=== PATIENT | female | born 1940 | race Caucasian/White ===

== ENCOUNTER 2017-12-03 14:00 | Inpatient (IN) | payer OTHER ==
[~2017-12-03] VITALS: Ht 154.9 cm; Wt 55.2 kg
--- NOTE | 2017-12-03 14:22 | EMERGENCY ROOM VISIT NOTE ---
History First contact with patient: 14:05 Chief Complaint: ABDOMINAL PAIN Stated Complaint: ABDOMINAL PAIN Nursing Triage Summary: triage note: pt reports upper abd pain since middle of october. pt reports she has a blood clot in her liver. pt reports "i just feel like i am getting worse instead of better." pt reports hx of diverticulitis. History of Present Illness The patient is a 77 year old female who presents to the Emergency Room with complaints of abdominal pain, night sweats, and generally feels unwell. She reports she was recently worked up for abdominal pain and found to have a thrombus in the portal vein, and is on coumadin for this. She reports she has had night sweats over the last 2 weeks, an extreme loss of appetite, and has lost about 15 pounds in the last 2 weeks. She has been seeing her PCP at [facility] and today went back to follow up, but felt more unwell so requested to come to the ED. She reports her abdominal pain is in the center of her abdomen, burning, does not radiate, nothing makes it better or worse, and 7/ 10 severity. Review of Systems See HPI for pertinent positives & negatives. A total of 10 systems reviewed and were otherwise negative. 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 Oropharynx unremarkable. EYES: Normal conjunctiva. Sclera non-icteric. NECK: Supple. No nuchal rigidity. FROM. No JVD. RESPIRATORY: Clear to auscultation. CARDIAC: Regular rate, normal rhythm. Extremities warm and well perfused. Pulses equal. ABDOMEN: Soft, diffuse epigastric abdominal pain with guarding. No rebound. Negative Ahmadi's. MUSCULOSKELETAL: Chest examination reveals no tenderness. The back is symmetrical on inspection without obvious abnormality. There is no CVA tenderness to palpation. No joint edema. LOWER EXTREMITIES: Calves are equal size bilaterally and non-tender. No edema. No discoloration. NEURO: Normal sensorium. No sensory or motor deficits noted. SKIN: No rash or jaundice noted. Medical Decision & Procedures ER Provider Diagnostic Interpretation: CT ABD/PELVIS IV CONTRAST ONLY CLINICAL HISTORY: Worsening abdominal pain. Portal vein thrombus. Patient on Coumadin. COMPARISON STUDY: None. TECHNIQUE: Following the IV administration of 94 mL of Optiray-320, CT scan of the abdomen and pelvis was performed from the lung bases to the proximal femurs. Images are reviewed in the axial, sagittal, and coronal planes. IV contrast was administered without complication. A dose lowering technique was utilized adhering to the principles of ALARA. CT DOSE: 257.87 mGy.cm FINDINGS: Lower chest: The heart is normal in size and configuration, without pericardial effusion. The lung bases and pleural spaces are clear. Liver: There is heterogeneous enhancement of the right lobe with suspected thrombosed right lobe portal branches. There is a large thrombus within the main portal vein with extension to the superior mesenteric vein. Gallbladder: Unremarkable. Spleen: Normal in size and attenuation. Pancreas: There is no pancreatic ductal dilatation. The head appears somewhat prominent and there is no fat plane between the pancreatic head and duodenum. Adrenal glands: Unremarkable. Kidneys: There is a 1 cm upper pole left renal cyst. There is no hydronephrosis. Bowel: There is a large duodenal diverticulum with an associated soft tissue density. This could reflect a mass, or a collapsed diverticulum. On coronal reformatted images, there is soft tissue prominence of the gastric antrum. GI consultation for consideration of endoscopy is recommended. There is extensive colonic diverticulosis. There are no acute peridiverticular inflammatory changes. Appendix is normal. Peritoneum: There are soft tissue mesenteric nodules within the left upper quadrant. Carcinomatosis must be considered. Vasculature: The abdominal aorta is normal in course and caliber. Addition to the superior mesenteric vein and portal vein thrombus, there is a suspected thrombosed left-sided mesenteric vein. Adenopathy: None. Pelvic viscera: The uterus is surgically absent. There is 34 mm right ovarian cyst. Skeletal structures: There is a prominent partial left cyst within the sacrum. IMPRESSION: 1. No evidence of bowel obstruction. No evidence of free air 2. Extensive diverticulosis. No acute diverticulitis. Normal appendix 3. Superior mesenteric vein and portal vein thrombus. There is also a suspected thrombosed left-sided mesenteric vein 4. Irregular enhancement of the right hepatic lobe which is felt to be secondary to thrombosed right portal vein branches 5. Left upper quadrant peritoneal nodules which are viewed as suspicious for carcinomatosis 6. Gastric antral thickening versus a nondistended stomach. Soft tissue surrounding a duodenal diverticulum. This could represent either a collapsed diverticulum, or diverticular mass. GI consultation for consideration of endoscopy is recommended. Laboratory Results 12/03/17 14:27 Red Blood Count 4.64, Mean Corpuscular Volume 81.0, Mean Corpuscular Hemoglobin 28.0, Mean Corpuscular Hemoglobin Concent 34.6, Mean Platelet Volume 9.3, Neutrophils (%) (Auto) 90.1, Lymphocytes (%) (Auto) 4.0, Monocytes (%) (Auto) 4.4, Eosinophils (%) (Auto) 0.0, Basophils (%) (Auto) 0.1, Neutrophils # (Auto) 18.71, Lymphocytes # (Auto) 0.84, Monocytes # (Auto) 0.92, Eosinophils # (Auto) 0.00, Basophils # (Auto) 0.02 12/03/17 14:27 Test 12/03/17 14:27 12/03/17 14:29 12/03/17 14:35 12/03/17 15:33 White Blood Count 20.78 K/uL (4.8-10.8) Red Blood Count 4.64 M/uL (4.2-5.4) Hemoglobin 13.0 g/dL (12.0-16.0) Hematocrit 37.6 % (37-47) Mean Corpuscular Volume 81.0 fL (80-100) Mean Corpuscular Hemoglobin 28.0 pg (25-34) Mean Corpuscular Hemoglobin Concent 34.6 g/dl (32-36) Platelet Count 442 K/uL (130-400) Mean Platelet Volume 9.3 fL (7.4-10.4) Neutrophils (%) (Auto) 90.1 % Lymphocytes (%) (Auto) 4.0 % Monocytes (%) (Auto) 4.4 % Eosinophils (%) (Auto) 0.0 % Basophils (%) (Auto) 0.1 % Neutrophils # (Auto) 18.71 K/uL (1.4-6.5) Lymphocytes # (Auto) 0.84 K/uL (1.2-3.4) Monocytes # (Auto) 0.92 K/uL (0.11-0.59) Eosinophils # (Auto) 0.00 K/uL (0-0.5) Basophils # (Auto) 0.02 K/uL (0-0.2) RDW Standard Deviation 48.3 fL (36.4-46.3) RDW Coefficient of Variation 16.3 % (11.5-14.5) Immature Granulocyte % (Auto) 1.4 % Immature Granulocyte # (Auto) 0.29 K/uL (0.00-0.02) Prothrombin Time 30.6 SECONDS (9.0-12.0) Prothromb Time International Ratio 3.0 (0.9-1.1) Activated Partial Thromboplast Time 34.6 SECONDS (21.0-31.0) Partial Thromboplastin Ratio 1.3 Est Creatinine Clear Calc Drug Dose 54.6 ml/min Estimated GFR () 99.1 Estimated GFR (Non- 85.5 BUN/Creatinine Ratio 29.2 (10-20) Calcium Level 8.8 mg/dl (8.5-10.1) Total Bilirubin 0.8 mg/dl (0.2-1) Direct Bilirubin 0.2 mg/dl (0-0.2) Aspartate Amino Transf (AST/SGOT) 48 U/L (15-37) Alanine Aminotransferase (ALT/SGPT) 102 U/L (12-78) Alkaline Phosphatase 275 U/L (45-117) Total Protein 6.7 gm/dl (6.4-8.2) Albumin 2.8 gm/dl (3.4-5.0) Lipase 215 U/L (73-393) Urine Color DK YELLOW Urine Appearance CLOUDY (CLEAR) Urine pH 6.5 (4.5-7.5) Urine Specific [place] 1.022 (1.000-1.030) Urine Protein TRACE (NEG) Urine Glucose (UA) NEG (NEG) Urine Ketones TRACE (NEG) Urine Occult Blood 2+ (NEG) Urine Nitrite NEG (NEG) Urine Bilirubin NEG (NEG) Urine Urobilinogen NEG (NEG) Urine Leukocyte Esterase NEG (NEG) Urine WBC (Auto) 1-5 /hpf (0-5) Urine RBC (Auto) >30 /hpf (0-4) Urine Hyaline Casts (Auto) 1-5 /lpf (0-5) Urine Epithelial Cells (Auto) 20-30 /lpf (0-5) Urine Bacteria (Auto) NEG (NEG) Bedside Hemoglobin 13.3 g/dl (12.0-16.0) Bedside Hematocrit 39 % (37-47) Bedside Sodium 133 mEq/L (135-144) Bedside Potassium 3.7 mEq/L (3.3-5.0) Bedside Chloride 96 mEq/L (101-112) Bedside Total CO2 25 mEq/l (24-31) Anion Gap 16.0 mmol/L (16-25) Bedside Blood Urea Nitrogen 18 mg/dl (7-18) Bedside Creatinine 0.6 mg/dl (0.6-1.3) Bedside Glucose (other) 133 mg/dl (70-99) Bedside Ionized Calcium (Dagoberto) 1.10 mmol/l (1.12-1.32) Bedside Lactic Acid Venous 0.87 mmol/L (0.90-1.70) Medications Administered Medications (Trade) Dose Ordered Sig/Shant Route Start Time Stop Time Status Last Admin Dose Admin Sodium Chloride 1,000 ml @ 999 mls/hr Q1H1M STAT IV 12/03/17 15:52 12/03/17 16:52 12/03/17 16:00 999 MLS/HR ED Course 14:20: I evaluated the patient in room B10. A complete history and physical were performed. 14:29: I discussed the case with Dr. Pizano. I ordered a CT scan of the abd/ pelvis with IV contrast. 15:30: The CT scan results had returned. I discussed them with Dr Pizano and with the patient herself. 15:50: I discussed the results with Justin Pascal of [facility]. 16:00: I discussed the case with STAR Jean. The patient will be admitted for further evaluation. Medical Decision 77 yo female with abdominal pain - differential includes: gastroenteritis, carcinomatosis, inflammatory bowel disease, peptic ulcer disease, sepsis, electrolyte abnormality. She had an IV placed and labs drawn. She was found to have a leukocytosis with a negative lactic acid. Her Chest Xray was unremarkable. Her CT scan had multiple abnormalities - with concerning findings of potential nodules showing carcinomatosis, and a gastric fullness which needs further workup. She is already therapeutic with her anticoagulation on Coumadin with an INR of 3.0. I discussed her case with [facility] regarding endoscopy, they said they would likely see her tomorrow and to make her NPO from midnight. I discussed the case with [facility] Hospitalist, Antionette Geller, and the patient was admitted. Impression Primary Impression: Abdominal pain Additional Impression: Portal vein thrombosis Departure Information Dispostion Being Evaluated By Hospitalist Condition GOOD Referrals No Doctor, Assigned (PCP) Patient Instructions My [facility] Health Problem Qualifiers
[2017-12-03] MEDS ORDERED: OPTIRAY 320 IV PRN (14:30)
[2017-12-03 14:44] LABS: BASO % 0.1 %; BASO ABS # 0.02 K/uL (0-0.2); HEMATOCRIT 37.6 % (37-47); IG# 0.29 K/uL (0.00-0.02); LYMPH ABS # 0.84 K/uL (1.2-3.4); MEAN CORPUSCULAR HGB CONC 34.6 g/dl (32-36); MEAN PLATELET VOLUME 9.3 fL (7.4-10.4); MONO % 4.4 %; MONO ABS # 0.92 K/uL (0.11-0.59); NEUT % 90.1 %; NEUT ABS # 18.71 K/uL (1.4-6.5); PLATELET COUNT 442 K/uL (130-400); RED CELL DISTRIBUTION WIDTH CV 16.3 % (11.5-14.5); RED CELL DISTRIBUTION WIDTH SD 48.3 fL (36.4-46.3); WHITE BLOOD COUNT 20.78 K/uL (4.8-10.8)
[2017-12-03 14:49] LABS: ISTAT CREATININE 0.6 mg/dl (0.6-1.3); ISTAT IONIZED CALCIUM 1.1 mmol/l (1.12-1.32); ISTAT POTASSIUM 3.7 mEq/L (3.3-5.0)
[2017-12-03 14:53] LABS: PTT PATIENT 34.6 SECONDS (21.0-31.0)
[2017-12-03] MEDS ORDERED: WARF5TAB7 PO (14:59)
[2017-12-03 15:05] LABS: ALBUMIN 2.8 gm/dl (3.4-5.0); CALCIUM 8.8 mg/dl (8.5-10.1); CREATININE 0.64 mg/dl (0.60-1.20); POTASSIUM 3.8 mmol/L (3.5-5.1)
[2017-12-03 15:07] LABS: TOTAL PROTEIN 6.7 gm/dl (6.4-8.2)
--- NOTE | 2017-12-03 15:36 | DIAGNOSTIC IMAGING REPORT ---
CT ABD/PELVIS IV CONTRAST ONLY CLINICAL HISTORY: Worsening abdominal pain. Portal vein thrombus. Patient on Coumadin. COMPARISON STUDY: None. TECHNIQUE: Following the IV administration of 94 mL of Optiray-320, CT scan of the abdomen and pelvis was performed from the lung bases to the proximal femurs. Images are reviewed in the axial, sagittal, and coronal planes. IV contrast was administered without complication. A dose lowering technique was utilized adhering to the principles of ALARA. CT DOSE: 257.87 mGy.cm FINDINGS: Lower chest: The heart is normal in size and configuration, without pericardial effusion. The lung bases and pleural spaces are clear. Liver: There is heterogeneous enhancement of the right lobe with suspected thrombosed right lobe portal branches. There is a large thrombus within the main portal vein with extension to the superior mesenteric vein. Gallbladder: Unremarkable. Spleen: Normal in size and attenuation. Pancreas: There is no pancreatic ductal dilatation. The head appears somewhat prominent and there is no fat plane between the pancreatic head and duodenum. Adrenal glands: Unremarkable. Kidneys: There is a 1 cm upper pole left renal cyst. There is no hydronephrosis. Bowel: There is a large duodenal diverticulum with an associated soft tissue density. This could reflect a mass, or a collapsed diverticulum. On coronal reformatted images, there is soft tissue prominence of the gastric antrum. GI consultation for consideration of endoscopy is recommended. There is extensive colonic diverticulosis. There are no acute peridiverticular inflammatory changes. Appendix is normal. Peritoneum: There are soft tissue mesenteric nodules within the left upper quadrant. Carcinomatosis must be considered. Vasculature: The abdominal aorta is normal in course and caliber. Addition to the superior mesenteric vein and portal vein thrombus, there is a suspected thrombosed left-sided mesenteric vein. Adenopathy: None. Pelvic viscera: The uterus is surgically absent. There is 34 mm right ovarian cyst. Skeletal structures: There is a prominent partial left cyst within the sacrum. IMPRESSION: 1. No evidence of bowel obstruction. No evidence of free air 2. Extensive diverticulosis. No acute diverticulitis. Normal appendix 3. Superior mesenteric vein and portal vein thrombus. There is also a suspected thrombosed left-sided mesenteric vein 4. Irregular enhancement of the right hepatic lobe which is felt to be secondary to thrombosed right portal vein branches 5. Left upper quadrant peritoneal nodules which are viewed as suspicious for carcinomatosis 6. Gastric antral thickening versus a nondistended stomach. Soft tissue surrounding a duodenal diverticulum. This could represent either a collapsed diverticulum, or diverticular mass. GI consultation for consideration of endoscopy is recommended. Electronically signed by: Rolando Chen M.D. 12/03/2017 3:35 PM Dictated Date/Time: 12/03/2017 3:16 PM
[2017-12-03] MEDS ORDERED: SODIUM CHLORIDE 0.9% 1000ML 1,000 ML IV STA (15:52)
--- NOTE | 2017-12-03 15:53 | DIAGNOSTIC IMAGING REPORT ---
SINGLE VIEW CHEST CLINICAL HISTORY: Epigastric abdominal pain. FINDINGS: An AP, portable, upright chest radiograph is obtained. No prior studies are available for comparison at the time of dictation. The examination is degraded by portable technique and patient rotation. The heart is top normal for projection and there is atherosclerotic calcification of the thoracic aorta. Nonspecific interstitial thickening is likely chronic. There is mild bibasilar atelectasis. No airspace consolidation or large pleural effusion is identified. No pneumothorax is seen. The skeletal structures are osteopenic. The bony thorax is grossly intact. IMPRESSION: No acute cardiopulmonary abnormality. Electronically signed by: Joe Morrell M.D. 12/03/2017 3:51 PM Dictated Date/Time: 12/03/2017 3:50 PM
[2017-12-03 16:36] VITALS: O2SAT 95; BMI 23.4
[2017-12-03] MEDS ORDERED: ONDANSETRON INJ 2 MG/ML 2 ML VIAL IV PRN (17:00)
[2017-12-03] MEDS ORDERED: CMD5 PO (17:22)
[2017-12-03 17:40] VITALS: BP 179/83; PULSE 105; TEMP 36.3; O2SAT 94
[2017-12-03] MEDS ORDERED: PHYTONADIONE 5 MG TAB PO STA (17:43)
[2017-12-03] MEDS: SODIUM CHLORIDE 0.9% 1000ML 1,000 ML IV SCH (18:00)
--- NOTE | 2017-12-03 18:17 | History and Physical ---
History & Physical Date & Time of Service: Dec 03, 2017 ~1615 Chief Complaint: Abdominal Pain Primary Care Physician: Carmine Poole D.O. History of Present Illness 77-year-old female who presents to the ED with chief complaint of abdominal pain. Approximately 3 weeks ago patient presented to her PCPs office with reports of fevers, night sweats, generalized rash, and GI upset. Labs were obtained that showed elevated LFTs. Ultrasound was then obtained and showed a portal vein thrombosis. Patient was started on a Lovenox bridge to Coumadin. She was also placed on a prednisone taper for the rash which is now resolved. Patient reports she has continued to feel poorly for the past 3 weeks. She has had a very poor appetite with very little oral intake. She reports a 10 pound weight loss in the past 1 month. She has had mid epigastric pain that is sharp and stabbing at times. She had some vomiting in the beginning however denies any recent vomiting. She continues to have night sweats. She denies any changes in her bowel habits. She denies chest pain and shortness of breath. No cough or sputum production. She denies lightheadedness, dizziness, and syncopal events. No urinary symptoms. In the ED patient's WBC is [address] ABD /pelvis shows superior mesenteric vein and portal vein thrombus, suspected thrombosed left-sided mesenteric vein, left upper quadrant peritoneal nodules which are viewed as suspicious for carcinomatosis, and gastric antral thickening versus a nondistended stomach and soft tissue surrounding a duodenal diverticulum. Patient was given IVF. Past Medical/Surgical History Medical Problems: (1) Diverticulosis Status: Chronic (2) Portal vein thrombosis Status: Chronic Surgical Problems: (1) History of partial hysterectomy Status: Chronic (2) History of tonsillectomy Status: Chronic (3) Status post total left knee replacement Status: Chronic Family History FH: stomach cancer BROTHER Social History Smoking Status: Never Smoker Alcohol Use: occasionally Immunizations History of Influenza Vaccine: Yes Influenza Vaccine Date: May 11, 2017 History of Tetanus Vaccine?: Yes Tetanus Immunization Date: May 13, 2012 History of Pneumococcal: Yes Pneumococcal Date: Jul 10, 2016 Allergies Coded Allergies: No Known Allergies (Unverified , 12/03/17) Home Medications Scheduled Warfarin Sod (Jantoven), 5 MG PO 5XWK Warfarin Sod (Coumadin), 2.5 MG PO 2XWK Review of Systems ROS per HPI, all other systems reviewed and negative Physical Exam Vital Signs Date Time Temp Pulse Resp B/P (MAP) Pulse Ox O2 Delivery O2 Flow Rate FiO2 12/03/17 17:40 36.3 105 12 179/83 (115) 94 Room Air 12/03/17 17:23 85 16 152/77 95 12/03/17 16:36 95 Room Air 12/03/17 16:00 95 Room Air 12/03/17 16:00 85 16 152/77 95 Room Air 12/03/17 14:06 36.7 106 20 158/80 92 Room Air General Appearance: WD/WN, no apparent distress Head: normocephalic, atraumatic Eyes: normal inspection, EOMI, sclerae normal ENT: hearing grossly normal, + pertinent finding (Mucous membranes dry) Neck: supple, no JVD, trachea midline Respiratory/Chest: chest non-tender, lungs clear, normal breath sounds, no respiratory distress Cardiovascular: regular rate, rhythm, no edema, normal peripheral pulses Abdomen/GI: normal bowel sounds, soft, no organomegaly, + tenderness ( Epigastric) Extremities/Musculoskelatal: normal inspection, no calf tenderness, normal capillary refill Neurologic/Psych: no motor/sensory deficits, alert, normal mood/affect, oriented x 3 Skin: normal color, warm/dry Diagnostics Laboratory Results Results Past 24 Hours Test 12/03/17 14:27 12/03/17 14:29 12/03/17 14:35 12/03/17 15:33 Range/Units White Blood Count 20.78 4.8-10.8 K/uL Red Blood Count 4.64 4.2-5.4 M/uL Hemoglobin 13.0 12.0-16.0 g/dL Hematocrit 37.6 37-47 % Mean Corpuscular Volume 81.0 80-100 fL Mean Corpuscular Hemoglobin 28.0 25-34 pg Mean Corpuscular Hemoglobin Concent 34.6 32-36 g/dl Platelet Count 442 130-400 K/uL Mean Platelet Volume 9.3 7.4-10.4 fL Neutrophils (%) (Auto) 90.1 % Lymphocytes (%) (Auto) 4.0 % Monocytes (%) (Auto) 4.4 % Eosinophils (%) (Auto) 0.0 % Basophils (%) (Auto) 0.1 % Neutrophils # (Auto) 18.71 1.4-6.5 K/uL Lymphocytes # (Auto) 0.84 1.2-3.4 K/uL Monocytes # (Auto) 0.92 0.11-0.59 K/uL Eosinophils # (Auto) 0.00 0-0.5 K/uL Basophils # (Auto) 0.02 0-0.2 K/uL RDW Standard Deviation 48.3 36.4-46.3 fL RDW Coefficient of Variation 16.3 11.5-14.5 % Immature Granulocyte % (Auto) 1.4 % Immature Granulocyte # (Auto) 0.29 0.00-0.02 K/uL Prothrombin Time 30.6 9.0-12.0 SECONDS Prothromb Time International Ratio 3.0 0.9-1.1 Activated Partial Thromboplast Time 34.6 21.0-31.0 SECONDS Partial Thromboplastin Ratio 1.3 Sodium Level 131 136-145 mmol/L Potassium Level 3.8 3.5-5.1 mmol/L Chloride Level 97 98-107 mmol/L Carbon Dioxide Level 25 21-32 mmol/L Anion Gap 9.0 16.0 16-25 mmol/L Blood Urea Nitrogen 19 7-18 mg/dl Creatinine 0.64 0.60-1.20 mg/dl Est Creatinine Clear Calc Drug Dose 54.6 ml/min Estimated GFR () 99.1 Estimated GFR (Non- 85.5 BUN/Creatinine Ratio 29.2 10-20 Random Glucose 126 70-99 mg/dl Calcium Level 8.8 8.5-10.1 mg/dl Total Bilirubin 0.8 0.2-1 mg/dl Direct Bilirubin 0.2 0-0.2 mg/dl Aspartate Amino Transf (AST/SGOT) 48 15-37 U/L Alanine Aminotransferase (ALT/SGPT) 102 12-78 U/L Alkaline Phosphatase 275 45-117 U/L Total Protein 6.7 6.4-8.2 gm/dl Albumin 2.8 3.4-5.0 gm/dl Lipase 215 73-393 U/L Urine Color DK YELLOW Urine Appearance CLOUDY CLEAR Urine pH 6.5 4.5-7.5 Urine Specific [place] 1.022 1.000-1.030 Urine Protein TRACE NEG Urine Glucose (UA) NEG NEG Urine Ketones TRACE NEG Urine Occult Blood 2+ NEG Urine Nitrite NEG NEG Urine Bilirubin NEG NEG Urine Urobilinogen NEG NEG Urine Leukocyte Esterase NEG NEG Urine WBC (Auto) 1-5 0-5 /hpf Urine RBC (Auto) >30 0-4 /hpf Urine Hyaline Casts (Auto) 1-5 0-5 /lpf Urine Epithelial Cells (Auto) 20-30 0-5 /lpf Urine Bacteria (Auto) NEG NEG Bedside Hemoglobin 13.3 12.0-16.0 g/dl Bedside Hematocrit 39 37-47 % Bedside Sodium 133 135-144 mEq/L Bedside Potassium 3.7 3.3-5.0 mEq/L Bedside Chloride 96 101-112 mEq/L Bedside Total CO2 25 24-31 mEq/l Bedside Blood Urea Nitrogen 18 7-18 mg/dl Bedside Creatinine 0.6 0.6-1.3 mg/dl Bedside Glucose (other) 133 70-99 mg/dl Bedside Ionized Calcium (Dagoberto) 1.10 1.12-1.32 mmol/l Bedside Lactic Acid Venous 0.87 0.90-1.70 mmol/L Diagnostic Radiology CXR IMPRESSION: No acute cardiopulmonary abnormality. CT ABD/PELVIS IMPRESSION: 1. No evidence of bowel obstruction. No evidence of free air 2. Extensive diverticulosis. No acute diverticulitis. Normal appendix 3. Superior mesenteric vein and portal vein thrombus. There is also a suspected thrombosed left-sided mesenteric vein 4. Irregular enhancement of the right hepatic lobe which is felt to be secondary to thrombosed right portal vein branches 5. Left upper quadrant peritoneal nodules which are viewed as suspicious for carcinomatosis 6. Gastric antral thickening versus a nondistended stomach. Soft tissue surrounding a duodenal diverticulum. This could represent either a collapsed diverticulum, or diverticular mass. GI consultation for consideration of endoscopy is recommended. Impression Assessment and Plan ABDOMINAL PAIN, NAUSEA WEIGHT LOSS -Admit to [facility] -Patient presenting with night sweats, weight loss, nausea, abdominal pain 3 weeks; was recently diagnosed with portal vein thrombosis as an outpatient -In the ED, patient underwent CT ABD/pelvis with findings as noted above -Concern for malignancy -Will need EGD -Case discussed with Justin GRAVES -Will give vitamin K 2.5 mg p.o., need INR to be 1.5 for EGD -N.p.o. after midnight PORTAL VEIN THROMBOSIS -Reversing as above -May need to bridge with heparin or Lovenox postprocedure LEUKOCYTOSIS -No obvious infectious source noted -UA does not suggest infection, chest x-ray clear, CT ABD pelvis negative for acute abdominal infectious process -Possibly due to underlying malignancy and/or dehydration -No antibiotics for now -Will continue to monitor WBC DVT PROPHYLAXIS -On Coumadin, management as above -SCDs when INR less than 2.0 DISPO -In my clinical judgment this beneficiary meets acute admission criteria, established by [facility], that includes being hospitalized through two midnights. ADDENDUM: This is a 77 year old female with a recent history of portal vein thrombosis now on Coumadin; presents with early satiety, lack of appetite, dysphagia, nausea and weight loss with epigastric abdominal pain. Presented here due to no PO intake and weight loss. CT done and shows a concerning gastric mass and possible peritoneal carcinomatosis. Plan for this patient is for an EGD, gastro aware. Advanced Directives Existing Living Will: Yes Existing Power of Glass Cutting Machine Feeder: Yes Resuscitation Status VTE Prophylaxis Will order VTE Prophylaxis: Yes
--- NOTE | 2017-12-03 22:05 | EMERGENCY ROOM VISIT NOTE ---
History Report prepared by Pavel: Papo Wilson Under the Supervision of: Dr. Isrrael Pizano D.O. First contact with patient: 14:05 Chief Complaint: ABDOMINAL PAIN Stated Complaint: ABDOMINAL PAIN History of Present Illness The patient is a 77 year old female with a history of chronic gastritis who presents to the Emergency Room with complaints of worsening abdominal pain over the past 2 weeks. She states that she came down with an illness on the 15 of last month, with episodes of vomiting. The patient says that she has also felt hot and cold but has not had any recorded fevers above 100.4. The patient states that she then got a viral rash all over her body, so she was seen at the [facility]. She notes that she has also had worsening upper abdominal pain with sweats at night. She describes the abdominal pain as "belchy and gassy ". The patient was seen by her primary care physician 6 days ago, and had an ultrasound which revealed a partial venous thrombosis, and was started on Lovenox and Coumadin. She says that she has finished the Lovenox, and has been compliant with the Coumadin. Her INR yesterday was 2.9. The patient says that she last vomited a couple days ago, and her last bowel movement was yesterday, but she had to take Colace. She denies any cough, runny nose, pain or burning with urination, hematochezia, or melena. She does add that she has had vaginal itching. The patient states that she had a vaginal hysterectomy, but still has her ovaries and all her other major abdominal organs. Source of History: patient Onset: Over past 2 weeks Position: abdomen (upper) Quality: other (pain - gassy, belchy) Timing: worsening Associated Symptoms: + chills, + diaphoresis (night sweats), + vomiting, + rash (viral), No fevers, No cough (or runny nose), No urinary symptoms Note: Positive vaginal itching. Review of Systems See HPI for pertinent positives & negatives. A total of 10 systems reviewed and were otherwise negative. Past Medical & Surgical Medical Problems: (1) Diverticulosis (2) Portal vein thrombosis Surgical Problems: (1) History of partial hysterectomy (2) History of tonsillectomy (3) Status post total left knee replacement Family History Family history omitted secondary to patient's advanced age. Social History Smoking Status: Never Smoker Smokeless Tobacco Use: No Drug Use: none Marital Status: other (unknown) Occupation Status: retired Current/Historical Medications Scheduled Warfarin Sod (Jantoven), 5 MG PO 5XWK Warfarin Sod (Coumadin), 2.5 MG PO 2XWK Allergies Coded Allergies: No Known Allergies (Unverified , 12/03/17) Physical Exam Vital Signs Date Time Temp Pulse Resp B/P (MAP) Pulse Ox O2 Delivery O2 Flow Rate FiO2 12/03/17 16:36 95 Room Air 12/03/17 16:00 95 Room Air 12/03/17 16:00 85 16 152/77 95 Room Air 12/03/17 14:06 36.7 106 20 158/80 92 Room Air Physical Exam GENERAL: Sitting up in bed, alert, well appearing, well nourished, no distress, non-toxic EYE EXAM: normal conjunctiva. OROPHARYNX: no exudate, no erythema, lips, buccal mucosa, and tongue normal and mucous membranes are moist NECK: supple, no nuchal rigidity, no adenopathy, non-tender LUNGS: Clear to auscultation. Normal chest wall mechanics HEART: no murmurs, S1 normal and S2 normal ABDOMEN: abdomen soft, tenderness to palpation in the right upper quadrant, normo-active bowel sounds, no masses, no rebound or guarding. BACK: Back is symmetrical on inspection and there is no deformity, no midline tenderness, no CVA tenderness. SKIN: no rashes and no bruising UPPER EXTREMITIES: upper extremities are grossly normal. LOWER EXTREMITIES: No pitting edema. NEURO EXAM: Normal sensorium, cranial nerves II-XII grossly intact, normal speech, no gross weakness of arms, no gross weakness of legs. Medical Decision & Procedures ER Provider Diagnostic Interpretation: Radiology results as stated below per my review and the radiologist's interpretation: SINGLE VIEW CHEST CLINICAL HISTORY: Epigastric abdominal pain. FINDINGS: An AP, portable, upright chest radiograph is obtained. No prior studies are available for comparison at the time of dictation. The examination is degraded by portable technique and patient rotation. The heart is top normal for projection and there is atherosclerotic calcification of the thoracic aorta. Nonspecific interstitial thickening is likely chronic. There is mild bibasilar atelectasis. No airspace consolidation or large pleural effusion is identified. No pneumothorax is seen. The skeletal structures are osteopenic. The bony thorax is grossly intact. IMPRESSION: No acute cardiopulmonary abnormality. Electronically signed by: Joe Morrell M.D. 12/03/2017 3:51 PM Dictated Date/Time: 12/03/2017 3:[address] ABD/PELVIS IV CONTRAST ONLY CLINICAL HISTORY: Worsening abdominal pain. Portal vein thrombus. Patient on Coumadin. COMPARISON STUDY: None. TECHNIQUE: Following the IV administration of 94 mL of Optiray-320, CT scan of the abdomen and pelvis was performed from the lung bases to the proximal femurs. Images are reviewed in the axial, sagittal, and coronal planes. IV contrast was administered without complication. A dose lowering technique was utilized adhering to the principles of ALARA. CT DOSE: 257.87 mGy.cm FINDINGS: Lower chest: The heart is normal in size and configuration, without pericardial effusion. The lung bases and pleural spaces are clear. Liver: There is heterogeneous enhancement of the right lobe with suspected thrombosed right lobe portal branches. There is a large thrombus within the main portal vein with extension to the superior mesenteric vein. Gallbladder: Unremarkable. Spleen: Normal in size and attenuation. Pancreas: There is no pancreatic ductal dilatation. The head appears somewhat prominent and there is no fat plane between the pancreatic head and duodenum. Adrenal glands: Unremarkable. Kidneys: There is a 1 cm upper pole left renal cyst. There is no hydronephrosis. Bowel: There is a large duodenal diverticulum with an associated soft tissue density. This could reflect a mass, or a collapsed diverticulum. On coronal reformatted images, there is soft tissue prominence of the gastric antrum. GI consultation for consideration of endoscopy is recommended. There is extensive colonic diverticulosis. There are no acute peridiverticular inflammatory changes. Appendix is normal. Peritoneum: There are soft tissue mesenteric nodules within the left upper quadrant. Carcinomatosis must be considered. Vasculature: The abdominal aorta is normal in course and caliber. Addition to the superior mesenteric vein and portal vein thrombus, there is a suspected thrombosed left-sided mesenteric vein. Adenopathy: None. Pelvic viscera: The uterus is surgically absent. There is 34 mm right ovarian cyst. Skeletal structures: There is a prominent partial left cyst within the sacrum. IMPRESSION: 1. No evidence of bowel obstruction. No evidence of free air 2. Extensive diverticulosis. No acute diverticulitis. Normal appendix 3. Superior mesenteric vein and portal vein thrombus. There is also a suspected thrombosed left-sided mesenteric vein 4. Irregular enhancement of the right hepatic lobe which is felt to be secondary to thrombosed right portal vein branches 5. Left upper quadrant peritoneal nodules which are viewed as suspicious for carcinomatosis 6. Gastric antral thickening versus a nondistended stomach. Soft tissue surrounding a duodenal diverticulum. This could represent either a collapsed diverticulum, or diverticular mass. GI consultation for consideration of endoscopy is recommended. Electronically signed by: Rolando Chen M.D. 12/03/2017 3:35 PM Dictated Date/Time: 12/03/2017 3:16 PM Laboratory Results 12/03/17 14:27 Red Blood Count 4.64, Mean Corpuscular Volume 81.0, Mean Corpuscular Hemoglobin 28.0, Mean Corpuscular Hemoglobin Concent 34.6, Mean Platelet Volume 9.3, Neutrophils (%) (Auto) 90.1, Lymphocytes (%) (Auto) 4.0, Monocytes (%) (Auto) 4.4, Eosinophils (%) (Auto) 0.0, Basophils (%) (Auto) 0.1, Neutrophils # (Auto) 18.71, Lymphocytes # (Auto) 0.84, Monocytes # (Auto) 0.92, Eosinophils # (Auto) 0.00, Basophils # (Auto) 0.02 12/03/17 14:27 Test 12/03/17 14:27 12/03/17 14:29 12/03/17 14:35 12/03/17 15:33 White Blood Count 20.78 K/uL (4.8-10.8) Red Blood Count 4.64 M/uL (4.2-5.4) Hemoglobin 13.0 g/dL (12.0-16.0) Hematocrit 37.6 % (37-47) Mean Corpuscular Volume 81.0 fL (80-100) Mean Corpuscular Hemoglobin 28.0 pg (25-34) Mean Corpuscular Hemoglobin Concent 34.6 g/dl (32-36) Platelet Count 442 K/uL (130-400) Mean Platelet Volume 9.3 fL (7.4-10.4) Neutrophils (%) (Auto) 90.1 % Lymphocytes (%) (Auto) 4.0 % Monocytes (%) (Auto) 4.4 % Eosinophils (%) (Auto) 0.0 % Basophils (%) (Auto) 0.1 % Neutrophils # (Auto) 18.71 K/uL (1.4-6.5) Lymphocytes # (Auto) 0.84 K/uL (1.2-3.4) Monocytes # (Auto) 0.92 K/uL (0.11-0.59) Eosinophils # (Auto) 0.00 K/uL (0-0.5) Basophils # (Auto) 0.02 K/uL (0-0.2) RDW Standard Deviation 48.3 fL (36.4-46.3) RDW Coefficient of Variation 16.3 % (11.5-14.5) Immature Granulocyte % (Auto) 1.4 % Immature Granulocyte # (Auto) 0.29 K/uL (0.00-0.02) Prothrombin Time 30.6 SECONDS (9.0-12.0) Prothromb Time International Ratio 3.0 (0.9-1.1) Activated Partial Thromboplast Time 34.6 SECONDS (21.0-31.0) Partial Thromboplastin Ratio 1.3 Est Creatinine Clear Calc Drug Dose 54.6 ml/min Estimated GFR () 99.1 Estimated GFR (Non- 85.5 BUN/Creatinine Ratio 29.2 (10-20) Calcium Level 8.8 mg/dl (8.5-10.1) Total Bilirubin 0.8 mg/dl (0.2-1) Direct Bilirubin 0.2 mg/dl (0-0.2) Aspartate Amino Transf (AST/SGOT) 48 U/L (15-37) Alanine Aminotransferase (ALT/SGPT) 102 U/L (12-78) Alkaline Phosphatase 275 U/L (45-117) Total Protein 6.7 gm/dl (6.4-8.2) Albumin 2.8 gm/dl (3.4-5.0) Lipase 215 U/L (73-393) Urine Color DK YELLOW Urine Appearance CLOUDY (CLEAR) Urine pH 6.5 (4.5-7.5) Urine Specific [place] 1.022 (1.000-1.030) Urine Protein TRACE (NEG) Urine Glucose (UA) NEG (NEG) Urine Ketones TRACE (NEG) Urine Occult Blood 2+ (NEG) Urine Nitrite NEG (NEG) Urine Bilirubin NEG (NEG) Urine Urobilinogen NEG (NEG) Urine Leukocyte Esterase NEG (NEG) Urine WBC (Auto) 1-5 /hpf (0-5) Urine RBC (Auto) >30 /hpf (0-4) Urine Hyaline Casts (Auto) 1-5 /lpf (0-5) Urine Epithelial Cells (Auto) 20-30 /lpf (0-5) Urine Bacteria (Auto) NEG (NEG) Bedside Hemoglobin 13.3 g/dl (12.0-16.0) Bedside Hematocrit 39 % (37-47) Bedside Sodium 133 mEq/L (135-144) Bedside Potassium 3.7 mEq/L (3.3-5.0) Bedside Chloride 96 mEq/L (101-112) Bedside Total CO2 25 mEq/l (24-31) Anion Gap 16.0 mmol/L (16-25) Bedside Blood Urea Nitrogen 18 mg/dl (7-18) Bedside Creatinine 0.6 mg/dl (0.6-1.3) Bedside Glucose (other) 133 mg/dl (70-99) Bedside Ionized Calcium (Dagoberto) 1.10 mmol/l (1.12-1.32) Bedside Lactic Acid Venous 0.87 mmol/L (0.90-1.70) Laboratory results per my review. Medications Administered Medications (Trade) Dose Ordered Sig/Shant Route Start Time Stop Time Status Last Admin Dose Admin Sodium Chloride 1,000 ml @ 999 mls/hr Q1H1M STAT IV 12/03/17 15:52 12/03/17 16:52 DC 12/03/17 16:00 999 MLS/HR ECG Per My Interpretation Indication: vomiting Rate (beats per minute): 100 Rhythm: sinus tachycardia Findings: other (normal axis, poor baseline in lateral leads) ED Course ED COURSE: Vital signs were reviewed and showed tachycardic and hypertensive situational vitals. The patients medical record was reviewed The above diagnostic studies were performed and reviewed. ED treatments and interventions as stated above. 1409: The patient was evaluated in room B10 by the resident, Dr. Ross.. A complete history and physical examination was performed. 1426: The patient was evaluated in room B10 by myself. A complete history and physical examination was performed. 1552: NSS 1000 ml @ 999 mls/hr IV. 1558: Upon reevaluation, the patient is resting comfortably. I discussed my findings with the patient and she understands and agrees with the treatment plan. Based on the patients age, coexisting illnesses, exam and lab findings the decision to treat as an inpatient was made. The patient remained stable while under my care. The patient will be evaluated for further management. 1600: I reviewed the patient's case with Antionette Sanabria. She will evaluate the patient for further management. Medical Decision Differential diagnoses includes but is not limited to gastritis, peptic ulcer disease, GERD, gallbladder disease, pancreatitis, small bowel obstruction, acute coronary syndrome, pericarditis, ischemic bowel, irritable bowel disease, irritable bowel syndrome, appendicitis, diverticulitis, malignancy, hernia, urinary tract infection, torsion, perforation, trauma, infectious. Patient is a 77-year-old female that presents the ER for significant abdominal pain which has been worsening. She was recently diagnosed with portal venous thrombus. CBC shows a leukocytosis of 20,000. BMP with a sodium of 131. LFTs were elevated. Bilirubin was unremarkable. UA with small amount of blood. CT shows superior mesenteric vein and portal vein thrombus. There is also question of carcinomatosis. Patient's INR was 3. She was given IV fluids but she declined pain medications. Patient was updated at bedside and admitted to internal medicine with the above findings. Medication Reconcilliation Current Medication List: was personally reviewed by me Blood Pressure Screening Patient's blood pressure: Elevated blood pressure Blood pressure disposition: Elevated BP felt to be situational Consults Time Called: 1557 Consulting Physician: Antionette Sanabria Returned Call: 1600 I reviewed the patient's case with Antionette Sanabria. She will evaluate the patient for further management. Impression Primary Impression: Portal vein thrombosis Additional Impressions: Leukocytosis Abdominal pain Scribe Attestation The scribe's documentation has been prepared under my direction and personally reviewed by me in its entirety. I confirm that the note above accurately reflects all work, treatment, procedures, and medical decision making performed by me. Departure Information Dispostion Being Evaluated By Hospitalist Referrals No Doctor, Assigned (PCP) Patient Instructions My [facility] Problem Qualifiers Additional Impressions: Leukocytosis Leukocytosis type: unspecified Qualified Codes: D72.829 - Elevated white blood cell count, unspecified Abdominal pain Abdominal location: unspecified location Qualified Codes: R10.9 - Unspecified abdominal pain
[2017-12-03 23:05] VITALS: BP 151/78; PULSE 82; TEMP 37.2; O2SAT 95
[2017-12-04] VITALS (8 sets, daily range): BP systolic 149–170; BP diastolic 73–89; PULSE 73–91; TEMP 36.5–37.4; O2SAT 93–97
[2017-12-04] MEDS: SODIUM CHLORIDE 0.9% 1000ML 1,000 ML IV SCH (05:55)
[2017-12-04 06:49] LABS: HEMATOCRIT 36.1 % (37-47); HEMOGLOBIN 12.3 g/dL (12.0-16.0); MEAN CELL VOLUME 81.7 fL (80-100); MEAN CORPUSCULAR HEMOGLOBIN 27.8 pg (25-34); MEAN CORPUSCULAR HGB CONC 34.1 g/dl (32-36); MEAN PLATELET VOLUME 9.7 fL (7.4-10.4); PLATELET COUNT 440 K/uL (130-400); RED CELL DISTRIBUTION WIDTH CV 16.5 % (11.5-14.5); WHITE BLOOD COUNT 16.91 K/uL (4.8-10.8)
[2017-12-04 06:59] LABS: INR 1.9 (0.9-1.1)
[2017-12-04 07:22] LABS: ALBUMIN 2.5 gm/dl (3.4-5.0); CALCIUM 7.9 mg/dl (8.5-10.1); CREATININE 0.6 mg/dl (0.60-1.20); POTASSIUM 3.1 mmol/L (3.5-5.1)
[2017-12-04 07:24] LABS: TOTAL PROTEIN 6.4 gm/dl (6.4-8.2)
--- NOTE | 2017-12-04 09:40 | Gastrointestinal Consultation ---
Gastrointestinal Consultation Date of Consultation: Dec 04, 2017 Attending Physician: Dr. Jones Consulting Physician: Dr. Wolfe Reason for Consultation: Abdominal pain, ? gastric mass History of Present Illness Patient is a 77 year old female patient of Rupinder Kemp PA-C at [facility]. She has a hx of diverticulosis, hysterectomy, and arthritis. She presented to [facility] ED yesterday for abdominal pain and weakness. GI is consulted for abdominal pain, question of gastric mass. About a month ago, she began with many symptoms including night sweats, low grade fevers, upper abdomen discomfort. She has had a 10 lbs weight loose during the past month. About 2 weeks ago, she had fevers to 101, nausea, a few episodes of vomiting, headache, rash and felt like she had a viral illness. In the OP setting, transaminases and Alk Phos were mildly elevated and RUQ ultrasound showed a portal vein thrombosis for which she is on Coumadin. In the past few days, she had very poor appetite and increased weakness and presented to [facility] ED for these issues. On arrival, CT scan with a thickened gastric wall, portal vein thrombus extending to the superior mesenteric vein. There are also irregular areas in the right hepatic lobe and possible carcinomatosis in the LUQ. Transaminases and Alk Phos are mildly elevated. She is seen and examined while she is sitting up in bed. she is awake, alert, oriented. Her daughter Mary Jo has just arrived from [place]. She has never been a heavy drinker or obese. She is not diabetic. She does not have a family hx of liver disease. 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 She has just decided to sell her home in [place] and find an apartment near her daughter in [place], [place]. Past Medical/Surgical History Medical Problems: (1) Abdominal pain Status: Acute (2) Leukocytosis Status: Acute (3) Portal vein thrombosis Status: Chronic Past Medical History: 1. Diverticulosis 2. Arthritis 3. Portal vein thrombosis Past Surgical History: 1. Partial hysterectomy (still has her ovaries). 2. Knee replacement Family History FH: stomach cancer BROTHER Social History Smoking Status: Never Smoker Drug Use: none Marital Status: other (unknown) Housing Status: lives with family Occupation Status: retired Allergies Coded Allergies: No Known Allergies (Unverified , 12/03/17) Current Medications Home Meds and Scripts Medications Dose Route/Sig Max Daily Dose Days Date Category Dose Instructions Coumadin (Warfarin Sod) 5 Mg Tab 2.5 Mg PO 2XWK 12/03/17 Reported , Jantoven (Warfarin Sodium) 5 Mg Tab 5 Mg PO 5XWK 12/03/17 Reported Mon, Wed, Fri, Sat, Sun Review of Systems Constitutional: + fever, + chills, + sweats, + weight loss, + weakness, + fatigue Eyes: No eye pain, No redness ENT: No sore throat, No trouble swallowing, No pain on swallowing Respiratory: No cough, No wheezing, No shortness of breath, No dyspnea on exertion Cardiac: No chest pain, No edema, No palpitations Abdomen: + see HPI, + pain, + nausea, No vomiting, No diarrhea, No constipation , No GI bleeding, No acolic stools, No jaundice, No dark urine Neuro: No memory loss, No weakness, No numbness/tingling, No vertigo, No balance problems Psych: No depression symptoms, No anxiety, No insomnia Heme: No abnormal bleeding/bruising, No night sweats Endo: + fatigue, No excessive thirst, No excessive urination Skin: No rash, No itch, No new/changing skin lesions, No jaundice Physical Exam Date Time Temp Pulse Resp B/P (MAP) Pulse Ox O2 Delivery O2 Flow Rate FiO2 12/04/17 07:39 36.7 78 18 162/78 (106) 96 Room Air 12/04/17 03:25 36.8 91 18 149/77 (101) 93 Nasal Cannula 3.0 12/04/17 03:21 Room Air 12/03/17 23:05 37.2 82 20 151/78 (102) 95 Room Air 12/03/17 17:40 36.3 105 12 179/83 (115) 94 Room Air 12/03/17 17:23 85 16 152/77 95 12/03/17 16:36 95 Room Air 12/03/17 16:00 95 Room Air 12/03/17 16:00 85 16 152/77 95 Room Air 12/03/17 14:06 36.7 106 20 158/80 92 Room Air General Appearance: no apparent distress Eyes: normal inspection, EOMI Neck: supple, no adenopathy, thyroid normal, no JVD Respiratory/Chest: chest non-tender, lungs clear, normal breath sounds, no accessory muscle use Cardiovascular: regular rate, rhythm, no JVD, no murmur Abdomen: normal bowel sounds, non tender, soft, no organomegaly Extremities: normal inspection, no pedal edema, normal capillary refill Neurologic/Psych: alert, normal mood/affect, oriented x 3 Skin: normal color, no jaundice, warm/dry, no rash Laboratory Results Last 24 Hours Test 12/03/17 14:27 12/03/17 14:29 12/03/17 14:35 12/03/17 15:33 White Blood Count 20.78 K/uL Red Blood Count 4.64 M/uL Hemoglobin 13.0 g/dL Hematocrit 37.6 % Mean Corpuscular Volume 81.0 fL Mean Corpuscular Hemoglobin 28.0 pg Mean Corpuscular Hemoglobin Concent 34.6 g/dl Platelet Count 442 K/uL Mean Platelet Volume 9.3 fL Neutrophils (%) (Auto) 90.1 % Lymphocytes (%) (Auto) 4.0 % Monocytes (%) (Auto) 4.4 % Eosinophils (%) (Auto) 0.0 % Basophils (%) (Auto) 0.1 % Neutrophils # (Auto) 18.71 K/uL Lymphocytes # (Auto) 0.84 K/uL Monocytes # (Auto) 0.92 K/uL Eosinophils # (Auto) 0.00 K/uL Basophils # (Auto) 0.02 K/uL RDW Standard Deviation 48.3 fL RDW Coefficient of Variation 16.3 % Immature Granulocyte % (Auto) 1.4 % Immature Granulocyte # (Auto) 0.29 K/uL Prothrombin Time 30.6 SECONDS Prothromb Time International Ratio 3.0 Activated Partial Thromboplast Time 34.6 SECONDS Partial Thromboplastin Ratio 1.3 Sodium Level 131 mmol/L Potassium Level 3.8 mmol/L Chloride Level 97 mmol/L Carbon Dioxide Level 25 mmol/L Anion Gap 9.0 mmol/L 16.0 mmol/L Blood Urea Nitrogen 19 mg/dl Creatinine 0.64 mg/dl Est Creatinine Clear Calc Drug Dose 54.6 ml/min Estimated GFR () 99.1 Estimated GFR (Non- 85.5 BUN/Creatinine Ratio 29.2 Random Glucose 126 mg/dl Calcium Level 8.8 mg/dl Total Bilirubin 0.8 mg/dl Direct Bilirubin 0.2 mg/dl Aspartate Amino Transf (AST/SGOT) 48 U/L Alanine Aminotransferase (ALT/SGPT) 102 U/L Alkaline Phosphatase 275 U/L Total Protein 6.7 gm/dl Albumin 2.8 gm/dl Lipase 215 U/L Urine Color DK YELLOW Urine Appearance CLOUDY Urine pH 6.5 Urine Specific [place] 1.022 Urine Protein TRACE Urine Glucose (UA) NEG Urine Ketones TRACE Urine Occult Blood 2+ Urine Nitrite NEG Urine Bilirubin NEG Urine Urobilinogen NEG Urine Leukocyte Esterase NEG Urine WBC (Auto) 1-5 /hpf Urine RBC (Auto) >30 /hpf Urine Hyaline Casts (Auto) 1-5 /lpf Urine Epithelial Cells (Auto) 20-30 /lpf Urine Bacteria (Auto) NEG Bedside Hemoglobin 13.3 g/dl Bedside Hematocrit 39 % Bedside Sodium 133 mEq/L Bedside Potassium 3.7 mEq/L Bedside Chloride 96 mEq/L Bedside Total CO2 25 mEq/l Bedside Blood Urea Nitrogen 18 mg/dl Bedside Creatinine 0.6 mg/dl Bedside Glucose (other) 133 mg/dl Bedside Ionized Calcium (Dagoberto) 1.10 mmol/l Bedside Lactic Acid Venous 0.87 mmol/L Test 12/04/17 05:53 White Blood Count 16.91 K/uL Red Blood Count 4.42 M/uL Hemoglobin 12.3 g/dL Hematocrit 36.1 % Mean Corpuscular Volume 81.7 fL Mean Corpuscular Hemoglobin 27.8 pg Mean Corpuscular Hemoglobin Concent 34.1 g/dl RDW Standard Deviation 49.0 fL RDW Coefficient of Variation 16.5 % Platelet Count 440 K/uL Mean Platelet Volume 9.7 fL Prothrombin Time 19.5 SECONDS Prothromb Time International Ratio 1.9 Sodium Level 133 mmol/L Potassium Level 3.1 mmol/L Chloride Level 100 mmol/L Carbon Dioxide Level 26 mmol/L Anion Gap 7.0 mmol/L Blood Urea Nitrogen 12 mg/dl Creatinine 0.60 mg/dl Est Creatinine Clear Calc Drug Dose 58.3 ml/min Estimated GFR () 101.2 Estimated GFR (Non- 87.3 BUN/Creatinine Ratio 20.1 Random Glucose 106 mg/dl Calcium Level 7.9 mg/dl Total Bilirubin 2.2 mg/dl Aspartate Amino Transf (AST/SGOT) 42 U/L Alanine Aminotransferase (ALT/SGPT) 87 U/L Alkaline Phosphatase 261 U/L Total Protein 6.4 gm/dl Albumin 2.5 gm/dl Globulin 3.9 gm/dl Albumin/Globulin Ratio 0.6 Impression Patient is a 77 year old female with epigastric pain and CT with a thickened gastric wall. The CT is also suggestive of possible carcinomatosis in the LUQ. Plan 1. EGD today. 2. Further recommendations to follow EGD. I have seen , examined and agree with the plan as outlined by STAR Song as above. -She describes an acute illness onset in October with nausea vomiting abdominal pain and a rash. She was treated with a rash with prednisone, she continued with symptoms and then an outpatient LFTs were checked, this resulted with elevated numbers, followed by right upper quadrant ultrasound that showed a partially occluded but extensive portal vein clot. She was placed on Coumadin still has inability to eat with a lot of gas and presented to the emergency room. She has had intermittent fevers and chills and CT scan here revealed the clot with extension down to her SMV and gonadal vein, a large duodenal diverticulum with potential soft tissue mass around that area therefore we are proceeding with an EGD today. Concerning features to me on the CT scan shows that she has had infarction/infiltration of her posterior lobe of the right liver that could be developing abscess/phlegmon. -exam reveals soft abd with tenderness in the epigastric region but her abdomen is soft. -Plan for EGD today and the further recommendations afterwards.
[2017-12-04] MEDS: D5NSS + 20MEQ KCL 1,000 ML IV SCH (09:46)
[2017-12-04] MEDS: POTASSIUM CHLR 10 MEQ / WTR 10 MEQ in PREMIXED WATER 100 ML IV SCH ×2 (09:46→16:01)
[2017-12-04] MEDS ORDERED: MIDAZOLAM HCL 1 MG/ML 2ML VIAL ONE (14:39)
[2017-12-04] MEDS ORDERED: ONDANSETRON INJ 2 MG/ML 2 ML VIAL ONE (14:41)
[2017-12-04] MEDS ORDERED: PROPOFOL IV EMULSION 10 MG/ML 20 ML VIAL IV ONE (14:41)
[2017-12-04] MEDS ORDERED: LIDOCAINE HCL 2% 2 ML VIAL (20MG/ML) ONE (14:41)
--- NOTE | 2017-12-04 15:12 | GI REPORT ---
Procedure Date: 12/04/2017 2:43 PM Procedure: Upper GI endoscopy Indications: Epigastric abdominal pain Medicines: Monitored Anesthesia Care Complications: No immediate complications. Estimated blood loss: None. Estimated Blood Loss: Estimated blood loss: none. Procedure: Pre-Anesthesia Assessment: - Pre-Anesthesia Assessment: - Prior to the procedure, a History and Physical was performed, and patient medications, allergies and sensitivities were reviewed. The patient's tolerance of previous anesthesia was reviewed. Please see [facility] for complete details. - The risks and benefits of the procedure and the sedation options and risks were discussed with the patient. All questions were answered and informed consent was obtained. - Patient identification and proposed procedure were verified prior to the procedure by the physician and the nurse. The procedure was verified in the pre-procedure area in the procedure room. After obtaining informed consent, the endoscope was passed carefully and meticuously under direct vision and only advanced when the lumen was clearly identified, C02 insuflation was utilized throughout the entirity of the procedure. Throughout the procedure, the patient's blood pressure, pulse, and oxygen saturations were monitored continuously. After obtaining informed consent, the endoscope was passed under direct vision. Throughout the procedure, the patient's blood pressure, pulse, and oxygen saturations were monitored continuously. The Scope was introduced through the mouth, and advanced to the second part of duodenum. The upper GI endoscopy was accomplished without difficulty. The patient tolerated the procedure well. Findings: A hiatal hernia was present. The entire examined stomach was normal. One non-bleeding cratered duodenal ulcer with a flat pigmented spot (Jt Class IIc) was found in the second portion of the duodenum around ampulla. The lesion was 15 mm in largest dimension. Not bleeding. Large duodenal diveticulum. Impression: - Hiatal hernia. - Normal stomach. - One non-bleeding duodenal ulcer with a flat pigmented spot (Jt Class IIc). - No specimens collected. Recommendation: - [facility]. - Give Protonix (pantoprazole): initiate therapy with 80 mg IV bolus, then 8 mg/hr IV by continuous infusion for 2 days. - Hold coumadin given large ulcer. - If has bleeding, consider transfer for IR therapy. - OK for liquid diet this indra - If has fevers, chills, consider repeat imaging of liver given concern as radiology has concern for potentially developing abscess in right liver Benito M Craft, MD 12/04/2017 3:11:28 PM This report has been signed electronically. Note Initiated On: 12/04/2017 2:43 PM I attest to the content of the Intraoperative Record and orders documented therein, exceptions below
[2017-12-04] MEDS ORDERED: PANTOprazole INJ 80 MG in DEXTROSE 5% 100ML IV ONE (15:30)
--- NOTE | 2017-12-04 15:47 | Anesthesiology Progress Note ---
Anesthesia Post Op Note Date & Time Dec 04, 2017 at 15:47 Vital Signs Pain Intensity: 0.0 Vital Signs Past 12 Hours Date Time Temp Pulse Resp B/P (MAP) Pulse Ox O2 Delivery O2 Flow Rate FiO2 12/04/17 15:21 72 18 149/65 (93) 94 Room Air 12/04/17 15:06 77 16 144/92 (109) 95 Room Air 12/04/17 12:13 36.9 77 16 144/93 (110) 95 Room Air 12/04/17 11:27 36.5 76 18 170/80 (110) 94 Room Air 12/04/17 09:45 Room Air 12/04/17 08:41 Room Air 12/04/17 07:39 36.7 78 18 162/78 (106) 96 Room Air Notes Mental Status: alert / awake / arousable, participated in evaluation Pt Amnestic to Procedure: Yes Nausea / Vomiting: adequately controlled Pain: adequately controlled Airway Patency, RR, SpO2: stable & adequate BP & HR: stable & adequate Hydration State: stable & adequate Anesthetic Complications: no major complications apparent
[2017-12-04] MEDS: PANTOprazole INJ 40 MG in DEXTROSE 5% 100ML IV SCH ×2 (15:57→20:55)
[2017-12-04] MEDS ORDERED: POLYETHYLENE (MIRALAX) 17 GM PACK PO ONE (17:30)
[2017-12-04] MEDS ORDERED: POLYETHYLENE (MIRALAX) 17 GM PACK PO PRN (17:30)
--- NOTE | 2017-12-04 18:36 | Progress Note ---
Medicine Progress Note Date & Time of Visit: Dec 04, 2017 at 17:52. 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 She underwent an upper endoscopy today based on a CT finding a irregularity in her stomach. A normal stomach was seen with presence of hiatal hernia and a duodenal ulcer that was not bleeding. No biopsies were taken for H. pylori. The patient reports persistent eructation and abdominal discomfort with nausea. She is been unable to tolerate food reliably for the last month and is subsequently lost 10 pounds. She was started on Coumadin for the blood clot in her liver which appears to have progressed per CT scan here in the hospital. Currently she is off the Coumadin with the finding of the ulcer. She does also report drenching night sweats that are new for her. She reports having plans for outpatient hematology visit next week and would like to see a car whacker if possible here in the hospital. CT finding also revealed concerning soft tissue nodules in the mesentery concern for peritoneal carcinomatosis. She that is otherwise mentating and ambulate at baseline. Objective Last 8 Hrs Date Time Temp Pulse Resp B/P (MAP) Pulse Ox O2 Delivery O2 Flow Rate FiO2 12/04/17 16:30 36.9 75 20 165/89 (114) 96 Room Air 12/04/17 16:23 Room Air 12/04/17 16:15 36.9 74 18 168/78 (108) 97 Room Air 12/04/17 15:55 36.8 73 20 162/81 (108) 95 Room Air 12/04/17 15:21 72 18 149/65 (93) 94 Room Air 12/04/17 15:06 77 16 144/92 (109) 95 Room Air 12/04/17 12:13 36.9 77 16 144/93 (110) 95 Room Air 12/04/17 11:27 36.5 76 18 170/80 (110) 94 Room Air Physical Exam: GEN: WNWD, in no acute distress, alert and appropriate HEENT: NC/AT, PERRL, normal sclerae, MMM CARDIO: reg rate, S1/2 heard without m/g/r LUNGS: CTA bilaterally, no crackles, rales or wheezes, good diaphragmatic excursion ABD: soft, non-tender, non-distended, no rebound or guarding, +BS EXTREMITY: RP and DP palpable 2+ bilat, no LE swelling or edema, extremities are warm and well-perfused NEURO: CN 2-12 intact, no gross focal deficits. MUSC: 5/5 strength throughout, ambulatory, no gross focal deficits. SKIN: warm and dry Laboratory Results: 12/04/17 05:53 12/04/17 05:53 Test 12/03/17 14:27 12/03/17 14:29 12/03/17 14:35 12/03/17 15:33 Immature Granulocyte % (Auto) 1.4 % White Blood Count 20.78 K/uL (4.8-10.8) Red Blood Count 4.64 M/uL (4.2-5.4) Hemoglobin 13.0 g/dL (12.0-16.0) Hematocrit 37.6 % (37-47) Mean Corpuscular Volume 81.0 fL (80-100) Mean Corpuscular Hemoglobin 28.0 pg (25-34) Mean Corpuscular Hemoglobin Concent 34.6 g/dl (32-36) Platelet Count 442 K/uL (130-400) Mean Platelet Volume 9.3 fL (7.4-10.4) Neutrophils (%) (Auto) 90.1 % Lymphocytes (%) (Auto) 4.0 % Monocytes (%) (Auto) 4.4 % Eosinophils (%) (Auto) 0.0 % Basophils (%) (Auto) 0.1 % Neutrophils # (Auto) 18.71 K/uL (1.4-6.5) Lymphocytes # (Auto) 0.84 K/uL (1.2-3.4) Monocytes # (Auto) 0.92 K/uL (0.11-0.59) Eosinophils # (Auto) 0.00 K/uL (0-0.5) Basophils # (Auto) 0.02 K/uL (0-0.2) Immature Granulocyte # (Auto) 0.29 K/uL (0.00-0.02) Activated Partial Thromboplast Time 34.6 SECONDS (21.0-31.0) Partial Thromboplastin Ratio 1.3 Direct Bilirubin 0.2 mg/dl (0-0.2) Lipase 215 U/L (73-393) Urine Color DK YELLOW Urine Appearance CLOUDY (CLEAR) Urine pH 6.5 (4.5-7.5) Urine Specific [place] 1.022 (1.000-1.030) Urine Protein TRACE (NEG) Urine Glucose (UA) NEG (NEG) Urine Ketones TRACE (NEG) Urine Occult Blood 2+ (NEG) Urine Nitrite NEG (NEG) Urine Bilirubin NEG (NEG) Urine Urobilinogen NEG (NEG) Urine Leukocyte Esterase NEG (NEG) Urine WBC (Auto) 1-5 /hpf (0-5) Urine RBC (Auto) >30 /hpf (0-4) Urine Hyaline Casts (Auto) 1-5 /lpf (0-5) Urine Epithelial Cells (Auto) 20-30 /lpf (0-5) Urine Bacteria (Auto) NEG (NEG) Bedside Hemoglobin 13.3 g/dl (12.0-16.0) Bedside Hematocrit 39 % (37-47) Bedside Sodium 133 mEq/L (135-144) Bedside Potassium 3.7 mEq/L (3.3-5.0) Bedside Chloride 96 mEq/L (101-112) Bedside Total CO2 25 mEq/l (24-31) Bedside Blood Urea Nitrogen 18 mg/dl (7-18) Bedside Creatinine 0.6 mg/dl (0.6-1.3) Bedside Glucose (other) 133 mg/dl (70-99) Bedside Ionized Calcium (D[place]oberto) 1.10 mmol/l (1.12-1.32) Bedside Lactic Acid Venous 0.87 mmol/L (0.90-1.70) Test 12/04/17 05:53 Red Blood Count 4.42 M/uL (4.2-5.4) Mean Corpuscular Volume 81.7 fL (80-100) Mean Corpuscular Hemoglobin 27.8 pg (25-34) Mean Corpuscular Hemoglobin Concent 34.1 g/dl (32-36) RDW Standard Deviation 49.0 fL (36.4-46.3) RDW Coefficient of Variation 16.5 % (11.5-14.5) Mean Platelet Volume 9.7 fL (7.4-10.4) Prothrombin Time 19.5 SECONDS (9.0-12.0) Prothromb Time International Ratio 1.9 (0.9-1.1) Anion Gap 7.0 mmol/L (3-11) Est Creatinine Clear Calc Drug Dose 58.3 ml/min Estimated GFR () 101.2 Estimated GFR (Non- 87.3 BUN/Creatinine Ratio 20.1 (10-20) Calcium Level 7.9 mg/dl (8.5-10.1) Total Bilirubin 2.2 mg/dl (0.2-1) Aspartate Amino Transf (AST/SGOT) 42 U/L (15-37) Alanine Aminotransferase (ALT/SGPT) 87 U/L (12-78) Alkaline Phosphatase 261 U/L (45-117) Total Protein 6.4 gm/dl (6.4-8.2) Albumin 2.5 gm/dl (3.4-5.0) Globulin 3.9 gm/dl (2.5-4.0) Albumin/Globulin Ratio 0.6 (0.9-2) Last 24 Hours Test 12/04/17 05:53 White Blood Count 16.91 K/uL Red Blood Count 4.42 M/uL Hemoglobin 12.3 g/dL Hematocrit 36.1 % Mean Corpuscular Volume 81.7 fL Mean Corpuscular Hemoglobin 27.8 pg Mean Corpuscular Hemoglobin Concent 34.1 g/dl RDW Standard Deviation 49.0 fL RDW Coefficient of Variation 16.5 % Platelet Count 440 K/uL Mean Platelet Volume 9.7 fL Prothrombin Time 19.5 SECONDS Prothromb Time International Ratio 1.9 Sodium Level 133 mmol/L Potassium Level 3.1 mmol/L Chloride Level 100 mmol/L Carbon Dioxide Level 26 mmol/L Anion Gap 7.0 mmol/L Blood Urea Nitrogen 12 mg/dl Creatinine 0.60 mg/dl Est Creatinine Clear Calc Drug Dose 58.3 ml/min Estimated GFR () 101.2 Estimated GFR (Non- 87.3 BUN/Creatinine Ratio 20.1 Random Glucose 106 mg/dl Calcium Level 7.9 mg/dl Total Bilirubin 2.2 mg/dl Aspartate Amino Transf (AST/SGOT) 42 U/L Alanine Aminotransferase (ALT/SGPT) 87 U/L Alkaline Phosphatase 261 U/L Total Protein 6.4 gm/dl Albumin 2.5 gm/dl Globulin 3.9 gm/dl Albumin/Globulin Ratio 0.6 Assessment & Plan 77-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 She underwent an upper endoscopy today based on a CT finding a irregularity in her stomach. A normal stomach was seen with presence of hiatal hernia and a duodenal ulcer that was not bleeding. No biopsies were taken for H. pylori. The patient reports persistent eructation and abdominal discomfort with nausea. She is been unable to tolerate food reliably for the last month and is subsequently lost 10 pounds. She was started on Coumadin for the blood clot in her liver which appears to have progressed per CT scan here in the hospital. Currently she is off the Coumadin with the finding of the ulcer. She does also report drenching night sweats that are new for her. She reports having plans for outpatient hematology visit next week and would like to see a car whacker if possible here in the hospital. CT finding also revealed concerning soft tissue nodules in the mesentery concern for peritoneal carcinomatosis. She that is otherwise mentating and ambulate at baseline. 1. Nonbleeding duodenal ulcer-likely a cause of her abdominal pain nausea and eructation. Continue PPI drip per GI recommendations. Continue to hold Coumadin and consider transfer if patient believes for IR therapy. Stool H pylori ordered. 2. PVT-likely contributing to abdominal pain and symptoms. Coumadin is currently on hold per GI recommendations. When okay to restart this will need bridge therapy with Lovenox. Consulted hematology to assist with continued workup while patient is in the hospital. In the setting of concerning mesenteric nodules weight loss and night sweats malignancy is high concern. 3. Hypokalemia-replaced. Repeat PRP in a.m. DVT prophylaxis SCDs currently, Coumadin on hold with contraindication Full code Disposition-likely hospitalized through the weekend or until reliably tolerating p.o. Patient will need PPI drip for a minimum of 48 hours. Nena Zee DO [facility] hospitalist Consultants: [facility] Current Inpatient Medications: Current Inpatient Medications Medications (Trade) Dose Ordered Sig/Shant Route Start Time Stop Time Status Last Admin Dose Admin Ioversol (Optiray 320) 125 ml UD PRN IV 12/03/17 14:30 12/07/17 14:29 Acetaminophen (Tylenol Tab) 650 mg Q4H PRN PO 12/03/17 17:00 01/02/18 16:59 Ondansetron HCl (Zofran Inj) 4 mg Q6H PRN IV 12/03/17 17:00 01/02/18 16:59 Potassium Chloride/Dextrose/ Sod Cl 1,000 ml @ 100 mls/hr Q10H IV 12/04/17 08:45 01/03/18 08:44 12/04/17 09:46 75 MLS/HR Pantoprazole Sodium 40 mg/ Dextrose 100 ml @ 20 mls/hr Q5H IV 12/04/17 15:45 01/03/18 15:44 12/04/17 15:57 20 MLS/HR Polyethylene (Miralax Powder Packet) 17 gm DAILY PRN PO 12/04/17 17:30 01/03/18 17:29
[2017-12-05] VITALS (8 sets, daily range): BP systolic 139–181; BP diastolic 74–93; PULSE 76–114; TEMP 36.8–39.3; O2SAT 95–98
[2017-12-05] MEDS: PANTOprazole INJ 40 MG in DEXTROSE 5% 100ML IV SCH ×5 (02:07→21:30)
[2017-12-05] MEDS: D5NSS + 20MEQ KCL 1,000 ML IV SCH ×3 (04:10→23:35)
[2017-12-05 10:08] LABS: HEMOGLOBIN 11.5 g/dL (12.0-16.0); MEAN CELL VOLUME 82.7 fL (80-100); MEAN CORPUSCULAR HGB CONC 33.8 g/dl (32-36); MEAN PLATELET VOLUME 9.1 fL (7.4-10.4); PLATELET COUNT 396 K/uL (130-400); RED CELL DISTRIBUTION WIDTH CV 16.5 % (11.5-14.5); RED CELL DISTRIBUTION WIDTH SD 49.8 fL (36.4-46.3)
[2017-12-05 10:15] LABS: INR 1.6 (0.9-1.1)
[2017-12-05 10:44] LABS: BASO % 0.1 %; BASO ABS # 0.01 K/uL (0-0.2); EOS % 0.1 %; EOS ABS # 0.02 K/uL (0-0.5); IG# 0.15 K/uL (0.00-0.02); LYMPH % 6.2 %; LYMPH ABS # 0.85 K/uL (1.2-3.4); MONO % 3.2 %; MONO ABS # 0.44 K/uL (0.11-0.59); NEUT % 89.3 %; NEUT ABS # 12.33 K/uL (1.4-6.5)
[2017-12-05 10:48] LABS: ALBUMIN 2.2 gm/dl (3.4-5.0); CALCIUM 7.5 mg/dl (8.5-10.1); CREATININE 0.61 mg/dl (0.60-1.20); POTASSIUM 3.1 mmol/L (3.5-5.1); TOTAL PROTEIN 5.8 gm/dl (6.4-8.2)
--- NOTE | 2017-12-05 11:25 | Gastroenterology Progress Note ---
Progress Note Date of Service: Dec 05, 2017 Subjective Pt evaluation today including: conversation w/ patient Doing well mild improvement of her symptoms with antacid therapy, reluctantly tolerating clear liquid diet. No signs of GI bleeding Medications Current Inpatient Medications Medications (Trade) Dose Ordered Sig/Shant Route Start Time Stop Time Status Last Admin Dose Admin Ioversol (Optiray 320) 125 ml UD PRN IV 12/03/17 14:30 12/07/17 14:29 Acetaminophen (Tylenol Tab) 650 mg Q4H PRN PO 12/03/17 17:00 01/02/18 16:59 Ondansetron HCl (Zofran Inj) 4 mg Q6H PRN IV 12/03/17 17:00 01/02/18 16:59 Potassium Chloride/Dextrose/ Sod Cl 1,000 ml @ 100 mls/hr Q10H IV 12/04/17 08:45 01/03/18 08:44 12/05/17 04:10 100 MLS/HR Pantoprazole Sodium 40 mg/ Dextrose 100 ml @ 20 mls/hr Q5H IV 12/04/17 15:45 01/03/18 15:44 12/05/17 06:42 20 MLS/HR Polyethylene (Miralax Powder Packet) 17 gm DAILY PRN PO 12/04/17 17:30 01/03/18 17:29 Potassium Chloride (Klor-Con Tab) 20 meq Q6H PO 12/05/17 11:00 12/05/17 17:01 Objective Vital Signs Date Time Temp Pulse Resp B/P (MAP) Pulse Ox O2 Delivery O2 Flow Rate FiO2 12/05/17 08:00 Room Air 12/05/17 07:24 37.4 83 18 154/74 (100) 95 Room Air 12/05/17 03:58 37.3 90 19 156/76 (102) 96 Room Air 12/05/17 00:00 Room Air 12/04/17 23:40 37.4 83 18 166/74 (104) 97 Room Air 12/04/17 21:11 Room Air 12/04/17 20:13 36.7 90 19 150/73 (98) 96 Room Air 12/04/17 16:30 36.9 75 20 165/89 (114) 96 Room Air 12/04/17 16:23 Room Air 12/04/17 16:15 36.9 74 18 168/78 (108) 97 Room Air 12/04/17 15:55 36.8 73 20 162/81 (108) 95 Room Air 12/04/17 15:21 72 18 149/65 (93) 94 Room Air 12/04/17 15:06 77 16 144/92 (109) 95 Room Air 12/04/17 12:13 36.9 77 16 144/93 (110) 95 Room Air 12/04/17 11:27 36.5 76 18 170/80 (110) 94 Room Air Physical Exam Eyes: normal inspection ENT: normal ENT inspection Neck: supple, no adenopathy Respiratory/Chest: chest non-tender, lungs clear Cardiovascular: regular rate, rhythm, no edema Abdomen: normal bowel sounds, non tender Extremities: normal range of motion, non-tender Skin: normal color, warm/dry Laboratory Results Last 24 Hours Test 12/04/17 23:29 12/05/17 09:55 White Blood Count 13.80 K/uL Red Blood Count 4.11 M/uL Hemoglobin 11.5 g/dL Hematocrit 34.0 % Mean Corpuscular Volume 82.7 fL Mean Corpuscular Hemoglobin 28.0 pg Mean Corpuscular Hemoglobin Concent 33.8 g/dl Platelet Count 396 K/uL Mean Platelet Volume 9.1 fL Neutrophils (%) (Auto) 89.3 % Lymphocytes (%) (Auto) 6.2 % Monocytes (%) (Auto) 3.2 % Eosinophils (%) (Auto) 0.1 % Basophils (%) (Auto) 0.1 % Neutrophils # (Auto) 12.33 K/uL Lymphocytes # (Auto) 0.85 K/uL Monocytes # (Auto) 0.44 K/uL Eosinophils # (Auto) 0.02 K/uL Basophils # (Auto) 0.01 K/uL RDW Standard Deviation 49.8 fL RDW Coefficient of Variation 16.5 % Immature Granulocyte % (Auto) 1.1 % Immature Granulocyte # (Auto) 0.15 K/uL Prothrombin Time 16.2 SECONDS Prothromb Time International Ratio 1.6 Sodium Level 134 mmol/L Potassium Level 3.1 mmol/L Chloride Level 103 mmol/L Carbon Dioxide Level 25 mmol/L Anion Gap 7.0 mmol/L Blood Urea Nitrogen 6 mg/dl Creatinine 0.61 mg/dl Est Creatinine Clear Calc Drug Dose 57.3 ml/min Estimated GFR () 100.6 Estimated GFR (Non- 86.8 BUN/Creatinine Ratio 9.5 Random Glucose 103 mg/dl Calcium Level 7.5 mg/dl Magnesium Level 2.1 mg/dl Total Bilirubin 0.9 mg/dl Aspartate Amino Transf (AST/SGOT) 27 U/L Alanine Aminotransferase (ALT/SGPT) 66 U/L Alkaline Phosphatase 225 U/L Total Protein 5.8 gm/dl Albumin 2.2 gm/dl Globulin 3.6 gm/dl Albumin/Globulin Ratio 0.6 Assessment and Plan 77-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 I discussed with her today I would continue conservative care, the size and location of this ulcer, although initially thought to be benign certainly could still be malignant and will need to be followed up on. I called transplant surgery in [place] for review of her CT scan that she has had here and awaiting callback. Given her extensive thrombus and ulcer he initially suggested that she may need IR thrombectomy but wanted to review the study first. Fortunately she has had no signs of bleeding, would continue the IV PPI for now , hold on anticoagulation for now, continue liquid diet and can advance as tolerated. Will need follow-up endoscopy with side-viewing endoscope (not available at the time of the EGD) in 3-4 weeks to ensure no malignancy is identified.. Would suggest a discharge twice daily PPI indefinitely. Call with questions
--- NOTE | 2017-12-05 12:29 | Progress Note ---
Medicine Progress Note Date & Time of Visit: Dec 05, 2017 at 10:57. 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 She underwent endoscopy yesterday revealing a flat nonbleeding ulcer in the duodenum. There is a concern this may be malignant and she is at high risk of bleeding. Coumadin was held and GI is working with gastroenterology in [place] for future directions. They are recommending a repeat EGD in 3-4 weeks with a side endoscopy. She reports feeling improved somewhat today. She is tolerating the diet but still has occasional upset stomach. She reports an improvement in her night sweats overnight. Hematology is set to stop by today. Objective Last 8 Hrs Date Time Temp Pulse Resp B/P (MAP) Pulse Ox O2 Delivery O2 Flow Rate FiO2 12/05/17 08:00 Room Air 12/05/17 07:24 37.4 83 18 154/74 (100) 95 Room Air 12/05/17 03:58 37.3 90 19 156/76 (102) 96 Room Air Physical Exam: GEN: WNWD, in no acute distress, alert and appropriate HEENT: NC/AT, normal sclerae, MMM CARDIO: reg rate, S1/2 heard without m/g/r LUNGS: CTA bilaterally, no crackles, rales or wheezes, good diaphragmatic excursion ABD: soft, non-tender, non-distended, no rebound or guarding, +BS EXTREMITY: RP and DP palpable 2+ bilat, no LE swelling or edema, extremities are warm and well-perfused NEURO: CN 2-12 grossly intact MUSC: 5/5 strength throughout, ambulatory, no gross focal deficits. SKIN: warm and dry Laboratory Results: 12/05/17 09:55 Red Blood Count 4.11, Mean Corpuscular Volume 82.7, Mean Corpuscular Hemoglobin 28.0, Mean Corpuscular Hemoglobin Concent 33.8, Mean Platelet Volume 9.1, Neutrophils (%) (Auto) 89.3, Lymphocytes (%) (Auto) 6.2, Monocytes (%) (Auto) 3.2, Eosinophils (%) (Auto) 0.1, Basophils (%) (Auto) 0.1, Neutrophils # (Auto) 12.33, Lymphocytes # (Auto) 0.85, Monocytes # (Auto) 0.44, Eosinophils # (Auto) 0.02, Basophils # (Auto) 0.01 12/05/17 09:55 Test 12/03/17 14:27 12/03/17 14:29 12/03/17 14:35 12/03/17 15:33 Activated Partial Thromboplast Time 34.6 SECONDS (21.0-31.0) Partial Thromboplastin Ratio 1.3 Direct Bilirubin 0.2 mg/dl (0-0.2) Lipase 215 U/L (73-393) Urine Color DK YELLOW Urine Appearance CLOUDY (CLEAR) Urine pH 6.5 (4.5-7.5) Urine Specific [place] 1.022 (1.000-1.030) Urine Protein TRACE (NEG) Urine Glucose (UA) NEG (NEG) Urine Ketones TRACE (NEG) Urine Occult Blood 2+ (NEG) Urine Nitrite NEG (NEG) Urine Bilirubin NEG (NEG) Urine Urobilinogen NEG (NEG) Urine Leukocyte Esterase NEG (NEG) Urine WBC (Auto) 1-5 /hpf (0-5) Urine RBC (Auto) >30 /hpf (0-4) Urine Hyaline Casts (Auto) 1-5 /lpf (0-5) Urine Epithelial Cells (Auto) 20-30 /lpf (0-5) Urine Bacteria (Auto) NEG (NEG) Bedside Hemoglobin 13.3 g/dl (12.0-16.0) Bedside Hematocrit 39 % (37-47) Bedside Sodium 133 mEq/L (135-144) Bedside Potassium 3.7 mEq/L (3.3-5.0) Bedside Chloride 96 mEq/L (101-112) Bedside Total CO2 25 mEq/l (24-31) Bedside Blood Urea Nitrogen 18 mg/dl (7-18) Bedside Creatinine 0.6 mg/dl (0.6-1.3) Bedside Glucose (other) 133 mg/dl (70-99) Bedside Ionized Calcium ([place]) 1.10 mmol/l (1.12-1.32) Bedside Lactic Acid Venous 0.87 mmol/L (0.90-1.70) Test 12/04/17 23:29 12/05/17 09:55 White Blood Count 13.80 K/uL (4.8-10.8) Red Blood Count 4.11 M/uL (4.2-5.4) Hemoglobin 11.5 g/dL (12.0-16.0) Hematocrit 34.0 % (37-47) Mean Corpuscular Volume 82.7 fL (80-100) Mean Corpuscular Hemoglobin 28.0 pg (25-34) Mean Corpuscular Hemoglobin Concent 33.8 g/dl (32-36) Platelet Count 396 K/uL (130-400) Mean Platelet Volume 9.1 fL (7.4-10.4) Neutrophils (%) (Auto) 89.3 % Lymphocytes (%) (Auto) 6.2 % Monocytes (%) (Auto) 3.2 % Eosinophils (%) (Auto) 0.1 % Basophils (%) (Auto) 0.1 % Neutrophils # (Auto) 12.33 K/uL (1.4-6.5) Lymphocytes # (Auto) 0.85 K/uL (1.2-3.4) Monocytes # (Auto) 0.44 K/uL (0.11-0.59) Eosinophils # (Auto) 0.02 K/uL (0-0.5) Basophils # (Auto) 0.01 K/uL (0-0.2) RDW Standard Deviation 49.8 fL (36.4-46.3) RDW Coefficient of Variation 16.5 % (11.5-14.5) Immature Granulocyte % (Auto) 1.1 % Immature Granulocyte # (Auto) 0.15 K/uL (0.00-0.02) Prothrombin Time 16.2 SECONDS (9.0-12.0) Prothromb Time International Ratio 1.6 (0.9-1.1) Anion Gap 7.0 mmol/L (3-11) Est Creatinine Clear Calc Drug Dose 57.3 ml/min Estimated GFR () 100.6 Estimated GFR (Non- 86.8 BUN/Creatinine Ratio 9.5 (10-20) Calcium Level 7.5 mg/dl (8.5-10.1) Magnesium Level 2.1 mg/dl (1.8-2.4) Total Bilirubin 0.9 mg/dl (0.2-1) Aspartate Amino Transf (AST/SGOT) 27 U/L (15-37) Alanine Aminotransferase (ALT/SGPT) 66 U/L (12-78) Alkaline Phosphatase 225 U/L (45-117) Total Protein 5.8 gm/dl (6.4-8.2) Albumin 2.2 gm/dl (3.4-5.0) Globulin 3.6 gm/dl (2.5-4.0) Albumin/Globulin Ratio 0.6 (0.9-2) Last 24 Hours Test 12/04/17 23:29 12/05/17 09:55 White Blood Count 13.80 K/uL Red Blood Count 4.11 M/uL Hemoglobin 11.5 g/dL Hematocrit 34.0 % Mean Corpuscular Volume 82.7 fL Mean Corpuscular Hemoglobin 28.0 pg Mean Corpuscular Hemoglobin Concent 33.8 g/dl Platelet Count 396 K/uL Mean Platelet Volume 9.1 fL Neutrophils (%) (Auto) 89.3 % Lymphocytes (%) (Auto) 6.2 % Monocytes (%) (Auto) 3.2 % Eosinophils (%) (Auto) 0.1 % Basophils (%) (Auto) 0.1 % Neutrophils # (Auto) 12.33 K/uL Lymphocytes # (Auto) 0.85 K/uL Monocytes # (Auto) 0.44 K/uL Eosinophils # (Auto) 0.02 K/uL Basophils # (Auto) 0.01 K/uL RDW Standard Deviation 49.8 fL RDW Coefficient of Variation 16.5 % Immature Granulocyte % (Auto) 1.1 % Immature Granulocyte # (Auto) 0.15 K/uL Prothrombin Time 16.2 SECONDS Prothromb Time International Ratio 1.6 Sodium Level 134 mmol/L Potassium Level 3.1 mmol/L Chloride Level 103 mmol/L Carbon Dioxide Level 25 mmol/L Anion Gap 7.0 mmol/L Blood Urea Nitrogen 6 mg/dl Creatinine 0.61 mg/dl Est Creatinine Clear Calc Drug Dose 57.3 ml/min Estimated GFR () 100.6 Estimated GFR (Non- 86.8 BUN/Creatinine Ratio 9.5 Random Glucose 103 mg/dl Calcium Level 7.5 mg/dl Magnesium Level 2.1 mg/dl Total Bilirubin 0.9 mg/dl Aspartate Amino Transf (AST/SGOT) 27 U/L Alanine Aminotransferase (ALT/SGPT) 66 U/L Alkaline Phosphatase 225 U/L Total Protein 5.8 gm/dl Albumin 2.2 gm/dl Globulin 3.6 gm/dl Albumin/Globulin Ratio 0.6 Assessment & Plan 77-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 She underwent endoscopy yesterday revealing a flat nonbleeding ulcer in the duodenum. There is a concern this may be malignant and she is at high risk of bleeding. Coumadin was held and GI is working with gastroenterology in [place] for future directions. They are recommending a repeat EGD in 3-4 weeks with a side endoscopy. She reports feeling improved somewhat today. She is tolerating the diet but still has occasional upset stomach. She reports an improvement in her night sweats overnight. Hematology is set to stop by today. 1. Nonbleeding duodenal ulcer-likely a cause of her abdominal discomfort. Continue PPI drip per GI recommendations. Continue to hold Coumadin and consider transfer if patient believes for IR therapy. Stool H pylori ordered. Added Tums to help with symptoms as needed 2. PVT-likely contributing to abdominal pain and symptoms. Coumadin is currently on hold per GI recommendations. When okay to restart this will need bridge therapy with Lovenox. Consulted hematology to assist with continued workup while patient is in the hospital. In the setting of concerning mesenteric nodules weight loss and night sweats malignancy is high concern. 3. Hypokalemia-replaced. Repeat PRP in a.m. DVT prophylaxis SCDs currently, Coumadin on hold with contraindication Full code Disposition-likely hospitalized through the weekend or until reliably tolerating p.o. Patient will need PPI drip for a minimum of 48 hours. Nena Zee DO [facility] hospitalist Consultants: GI-Dr. Wolfe Hematology-Dr. Mazariegos Current Inpatient Medications: Current Inpatient Medications Medications (Trade) Dose Ordered Sig/Shant Route Start Time Stop Time Status Last Admin Dose Admin Ioversol (Optiray 320) 125 ml UD PRN IV 12/03/17 14:30 12/07/17 14:29 Acetaminophen (Tylenol Tab) 650 mg Q4H PRN PO 12/03/17 17:00 01/02/18 16:59 Ondansetron HCl (Zofran Inj) 4 mg Q6H PRN IV 12/03/17 17:00 01/02/18 16:59 Potassium Chloride/Dextrose/ Sod Cl 1,000 ml @ 100 mls/hr Q10H IV 12/04/17 08:45 01/03/18 08:44 12/05/17 04:10 100 MLS/HR Pantoprazole Sodium 40 mg/ Dextrose 100 ml @ 20 mls/hr Q5H IV 12/04/17 15:45 01/03/18 15:44 12/05/17 06:42 20 MLS/HR Polyethylene (Miralax Powder Packet) 17 gm DAILY PRN PO 12/04/17 17:30 01/03/18 17:29
[2017-12-05] MEDS ORDERED: CALCIUM CARBONATE 500 MG CHEWABLE PO PRN (12:30)
[2017-12-05] MEDS: POTASSIUM CHLORIDE 20 MEQ TABCR PO SCH ×2 (12:34→16:26)
[2017-12-05] MEDS: ACETAMINOPHEN 325 MG TAB PO PRN (14:10)
--- NOTE | 2017-12-05 14:19 | Medical Consult ---
Consultation Date of Consultation: Dec 05, 2017. Attending Physician: Nena Zee DO Reason for Consultation: portal vein thrombosis, soft tissue mesenteric nodules in LUQ History of Present Illness 77 year old female present with epigastric pain. She states that her symptoms started since Mid-October She had noticed fatigue, generalized weakness and a rash, fevers up to 101 and chills and night sweats and epigastric pain. She describes the pain as burning. She states that she has lost about 10 pounds during the past month since she has decreased appetite and hardly able to eat and drink. She saw her PCP and had US and was started on lovenox and transitioned to coumadin for portal vein thrombosis and was planning to consult with hepatology at [facility] Her symptoms were persistent and she was sent to ER. but still has the pain. She states that she has had nausea off and on, no hematemesis, few episodes of vomiting but not now Her WBC was elevated significantly on admission but it is improving. She had GI consult and had EGD yesterday She states today she is feeling a little better CT scan showed superior mesenteric vein and portal vein thrombosis, suspected thrombosed left sided mesenteric vein and irregular enhancement of the right hepatic lobe which is felt to be secondary to thrombosed right portal vein branches as well as Left upper quadrant peritoneal nodules which are viewed as suspicious for carcinomatosis and Gastric antral thickening versus a nondistended stomach. Soft tissue surrounding a duodenal diverticulum. This could represent either a collapsed diverticulum, or diverticular mass and GI consultation was recommended for consideration of endoscopy is recommended. She had the EGD which showed one nonbleeding cratered duodenal ulcer in the second portion of duodenum around ampulla ~15mm not bleeding and a large duodenal diverticulum She feels a little better on protonix She denies any bleeding symptoms at this time She states that last year she had similar symptoms of abdominal pain and took antibiotics for possible diverticulitis and states that the pain went away but came back in Mid October She states that about a year ago she had some rectal bleed and she believe it was from a hemorrhoid at that time but has not had any further episodes Past Medical/Surgical History PMH: PSH: left knee replacement in May 2017 - states that she took xarelto, partial hysterectomy - still has ovaries Medical Problems: (1) Abdominal pain Status: Acute (2) Leukocytosis Status: Acute (3) Portal vein thrombosis Status: Chronic Family History FH: stomach cancer BROTHER Social History Smoking Status: Never Smoker Smokeless Tobacco Use: No Alcohol Use: occasionally Drug Use: none Housing Status: lives alone 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) Allergies Coded Allergies: No Known Allergies (Unverified , 12/03/17) Current Inpatient Medications Current Inpatient Medications Medications (Trade) Dose Ordered Sig/Shant Route Start Time Stop Time Status Last Admin Dose Admin Ioversol (Optiray 320) 125 ml UD PRN IV 12/03/17 14:30 12/07/17 14:29 Acetaminophen (Tylenol Tab) 650 mg Q4H PRN PO 12/03/17 17:00 01/02/18 16:59 Ondansetron HCl (Zofran Inj) 4 mg Q6H PRN IV 12/03/17 17:00 01/02/18 16:59 Potassium Chloride/Dextrose/ Sod Cl 1,000 ml @ 100 mls/hr Q10H IV 12/04/17 08:45 01/03/18 08:44 12/05/17 12:33 100 MLS/HR Pantoprazole Sodium 40 mg/ Dextrose 100 ml @ 20 mls/hr Q5H IV 12/04/17 15:45 01/03/18 15:44 12/05/17 11:32 20 MLS/HR Polyethylene (Miralax Powder Packet) 17 gm DAILY PRN PO 12/04/17 17:30 01/03/18 17:29 Potassium Chloride (Klor-Con Tab) 20 meq Q6H PO 12/05/17 11:00 12/05/17 17:01 12/05/17 12:34 20 MEQ Calcium Carbonate (Tums Chew Tab) 500 mg QID PRN PO 12/05/17 12:30 01/04/18 12:29 Review of Systems Constitutional: + fever, + chills, + sweats, + weight loss, + weakness, + fatigue Eyes: No worsening of vision, No eye pain ENT: No unusual epistaxis, No nasal symptoms, No sore throat Respiratory: No cough, No sputum, No wheezing, No shortness of breath, No dyspnea on exertion, No dyspnea at rest, No hemoptysis Cardiovascular: No chest pain, No orthopnea, No edema Abdomen: + pain, + nausea, No vomiting, No diarrhea, No constipation Musculoskeletal: No joint pain, No muscle pain, No swelling Genitourinary - Female: No dysuria, No hematuria Neurologic: No numbness/tingling Hematologic / Lymphatic: + night sweats, No swollen lymph nodes Physical Exam Date Time Temp Pulse Resp B/P (MAP) Pulse Ox O2 Delivery O2 Flow Rate FiO2 12/05/17 11:56 37.2 76 20 159/79 (105) 97 Room Air 12/05/17 08:00 Room Air 12/05/17 07:24 37.4 83 18 154/74 (100) 95 Room Air 12/05/17 03:58 37.3 90 19 156/76 (102) 96 Room Air 12/05/17 00:00 Room Air 12/04/17 23:40 37.4 83 18 166/74 (104) 97 Room Air 12/04/17 21:11 Room Air 12/04/17 20:13 36.7 90 19 150/73 (98) 96 Room Air 12/04/17 16:30 36.9 75 20 165/89 (114) 96 Room Air 12/04/17 16:23 Room Air 12/04/17 16:15 36.9 74 18 168/78 (108) 97 Room Air 12/04/17 15:55 36.8 73 20 162/81 (108) 95 Room Air 12/04/17 15:21 72 18 149/65 (93) 94 Room Air 12/04/17 15:06 77 16 144/92 (109) 95 Room Air General Appearance: WD/WN, no apparent distress Head: normocephalic, atraumatic Eyes: sclerae normal Neck: supple, no adenopathy, no JVD Respiratory/Chest: lungs clear, normal breath sounds, no respiratory distress, no accessory muscle use Cardiovascular: regular rate, rhythm, no edema, no JVD, no murmur Abdomen/GI: normal bowel sounds, soft, no organomegaly, + tenderness ( epigastric) Back: normal inspection Extremities/Musculoskelatal: no pedal edema, + pertinent finding (nontender) Neurologic/Psych: alert, normal mood/affect, oriented x 3 Skin: warm/dry, no rash Laboratory Results Last 24 Hours Test 12/04/17 23:29 12/05/17 09:55 White Blood Count 13.80 K/uL Red Blood Count 4.11 M/uL Hemoglobin 11.5 g/dL Hematocrit 34.0 % Mean Corpuscular Volume 82.7 fL Mean Corpuscular Hemoglobin 28.0 pg Mean Corpuscular Hemoglobin Concent 33.8 g/dl Platelet Count 396 K/uL Mean Platelet Volume 9.1 fL Neutrophils (%) (Auto) 89.3 % Lymphocytes (%) (Auto) 6.2 % Monocytes (%) (Auto) 3.2 % Eosinophils (%) (Auto) 0.1 % Basophils (%) (Auto) 0.1 % Neutrophils # (Auto) 12.33 K/uL Lymphocytes # (Auto) 0.85 K/uL Monocytes # (Auto) 0.44 K/uL Eosinophils # (Auto) 0.02 K/uL Basophils # (Auto) 0.01 K/uL RDW Standard Deviation 49.8 fL RDW Coefficient of Variation 16.5 % Immature Granulocyte % (Auto) 1.1 % Immature Granulocyte # (Auto) 0.15 K/uL Prothrombin Time 16.2 SECONDS Prothromb Time International Ratio 1.6 Sodium Level 134 mmol/L Potassium Level 3.1 mmol/L Chloride Level 103 mmol/L Carbon Dioxide Level 25 mmol/L Anion Gap 7.0 mmol/L Blood Urea Nitrogen 6 mg/dl Creatinine 0.61 mg/dl Est Creatinine Clear Calc Drug Dose 57.3 ml/min Estimated GFR () 100.6 Estimated GFR (Non- 86.8 BUN/Creatinine Ratio 9.5 Random Glucose 103 mg/dl Calcium Level 7.5 mg/dl Magnesium Level 2.1 mg/dl Total Bilirubin 0.9 mg/dl Aspartate Amino Transf (AST/SGOT) 27 U/L Alanine Aminotransferase (ALT/SGPT) 66 U/L Alkaline Phosphatase 225 U/L Total Protein 5.8 gm/dl Albumin 2.2 gm/dl Globulin 3.6 gm/dl Albumin/Globulin Ratio 0.6 Assessment & Plan 77 year old female admitted with epigastric pain, generalized weakness, fatigue malaise, intermittent fevers and chills and night sweats for several weeks and weight loss. CT scan showing thickened d gastric wall and portal vein thrombosis and superior mesenteric vein thrombosis as well as irregular enhancement in right hepatic lobe and somewhat prominent pancreatic head reported on CT as well as mesenteric nodules in LUQ She had EGD showing one nonbleeding cratered duodenal ulcer in 2nd portion of duodenum around the ampulla and large duodenal diverticulum Differential of the nodularity would be reactive/inflammatory process or malignancy. If there was inflammation in the diverticulum, that could also potentially trigger the thrombosis as well. Leukocytosis is improving - may be reactive neutrophilia - recommend rule out inflammation and/or infection I discussed with the patient and her daughter and recommended check CEA CA 125 CA 19-9 LDH and MRI abdomen to evaluate the liver and somewhat prominent pancreas and the nodularity if it can be seen on MRI. Resume anticoagulation when considered safe to do so by her paper testing supervisor recommend age and gender appropriate screening Check factor V leiden and prothrombin gene mutation cardiolipin IgG and IgM and lupus anticoagulant. Patient recently on coumadin so we will not check Protein C and S at this time The radiologist who read her official report was not available but I discussed with Dr Sudarshan Salmon oriental medicine practitioner radiologist and he said he does not feel radiology would be able to perform biopsy of the mentioned mesenteric nodules - said they are small and irregular He said she can have MRI with her dental implants and the knee replacement and he also favor checking an MRI - said that could help to make sure she is not developing hepatic abscesses and said he has also discussed her case last evening with GI Dr Wolfe. she should follow up with her chief green officer as well for ovarian cyst and continue follow up with GI for mesenteric nodules. thank you for consult
[2017-12-06] VITALS (7 sets, daily range): BP systolic 128–190; BP diastolic 72–98; PULSE 80–109; TEMP 36.3–39.2; O2SAT 93–99
[2017-12-06] MEDS: PANTOprazole INJ 40 MG in DEXTROSE 5% 100ML IV SCH ×5 (03:20→22:36)
[2017-12-06] MEDS ORDERED: PIPERACILL/TAZOBAC IV 4.5 GM in DEXTROSE 5% 100ML 100 ML IV ONE (04:32)
[2017-12-06] MEDS ORDERED: PIPERACILL/TAZOBAC IV 4.5 GM in DEXTROSE 5% 100ML 100 ML IV SCH (04:45)
[2017-12-06] MEDS ORDERED: PIPERACILL/TAZOBAC CONSULT ACTIVE PRN ×2 (04:45)
[2017-12-06] MEDS ORDERED: PIPERACILL/TAZOBAC IV 3.375 GM in NSS 100 ML IV ONE (04:45)
[2017-12-06 04:56] LABS: HEMATOCRIT 30.9 % (37-47); HEMOGLOBIN 10.5 g/dL (12.0-16.0); MEAN CELL VOLUME 82.2 fL (80-100); MEAN CORPUSCULAR HEMOGLOBIN 27.9 pg (25-34); MEAN PLATELET VOLUME 9.1 fL (7.4-10.4); PLATELET COUNT 367 K/uL (130-400); RED CELL DISTRIBUTION WIDTH CV 16.4 % (11.5-14.5); RED CELL DISTRIBUTION WIDTH SD 49.4 fL (36.4-46.3); WHITE BLOOD COUNT 12.55 K/uL (4.8-10.8)
[2017-12-06 05:18] LABS: CALCIUM 7.4 mg/dl (8.5-10.1); CREATININE 0.55 mg/dl (0.60-1.20); POTASSIUM 3.3 mmol/L (3.5-5.1)
[2017-12-06] MEDS: D5NSS + 20MEQ KCL 1,000 ML IV SCH ×2 (09:39→22:37)
--- NOTE | 2017-12-06 10:38 | Progress Note ---
Medicine Progress Note Date & Time of Visit: Dec 06, 2017 at 08:21. 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 She underwent endoscopy revealing a flat nonbleeding ulcer in the duodenum. There is a concern this may be malignant and she is at high risk of bleeding. Coumadin was held and GI is working with gastroenterology in [place] for future directions. They are recommending a repeat EGD in 3-4 weeks with a side endoscopy. Overnight she was febrile but denied night sweats. She was pancultured and placed on Zosyn empirically. She still reports intolerance of food related to a lack of appetite. She is not advanced from a clear liquid diet at this time. I discussed the plan in detail with she and her daughter at bedside. She is awaiting an MRI of the abdomen this morning. She denies any chest pain shortness of breath, nausea, vomiting and does not appear clinically septic. Objective Last 8 Hrs Date Time Temp Pulse Resp B/P (MAP) Pulse Ox O2 Delivery O2 Flow Rate FiO2 12/06/17 07:06 36.9 82 17 145/73 (97) 96 Room Air 12/06/17 04:35 37.1 89 17 159/75 (103) 98 Room Air Physical Exam: GEN: WNWD, in no acute distress, alert and appropriate HEENT: NC/AT, normal sclerae, MMM CARDIO: reg rate, S1/2 heard without m/g/r LUNGS: CTA bilaterally, no crackles, rales or wheezes, good diaphragmatic excursion ABD: soft, tenderness in epigastric area and she is also touchy in the left lower quadrant, non-distended, no rebound or guarding, +BS EXTREMITY: RP and DP palpable 2+ bilat, no LE swelling or edema, extremities are warm and well-perfused NEURO: CN 2-12 grossly intact MUSC: 5/5 strength throughout, ambulatory, no gross focal deficits. SKIN: warm and dry Laboratory Results: 12/06/17 04:46 12/06/17 04:46 Test 12/03/17 14:27 12/03/17 14:35 12/03/17 15:33 12/04/17 23:29 Activated Partial Thromboplast Time 34.6 SECONDS (21.0-31.0) Partial Thromboplastin Ratio 1.3 Direct Bilirubin 0.2 mg/dl (0-0.2) Lipase 215 U/L (73-393) Bedside Hemoglobin 13.3 g/dl (12.0-16.0) Bedside Hematocrit 39 % (37-47) Bedside Sodium 133 mEq/L (135-144) Bedside Potassium 3.7 mEq/L (3.3-5.0) Bedside Chloride 96 mEq/L (101-112) Bedside Total CO2 25 mEq/l (24-31) Bedside Blood Urea Nitrogen 18 mg/dl (7-18) Bedside Creatinine 0.6 mg/dl (0.6-1.3) Bedside Glucose (other) 133 mg/dl (70-99) Bedside Ionized Calcium ([place]) 1.10 mmol/l (1.12-1.32) Bedside Lactic Acid Venous 0.87 mmol/L (0.90-1.70) Test 12/05/17 09:55 12/05/17 13:41 12/06/17 04:46 12/06/17 05:35 Immature Granulocyte % (Auto) 1.1 % White Blood Count 13.80 K/uL (4.8-10.8) Red Blood Count 4.11 M/uL (4.2-5.4) 3.76 M/uL (4.2-5.4) Hemoglobin 11.5 g/dL (12.0-16.0) Hematocrit 34.0 % (37-47) Mean Corpuscular Volume 82.7 fL (80-100) 82.2 fL (80-100) Mean Corpuscular Hemoglobin 28.0 pg (25-34) 27.9 pg (25-34) Mean Corpuscular Hemoglobin Concent 33.8 g/dl (32-36) 34.0 g/dl (32-36) Platelet Count 396 K/uL (130-400) Mean Platelet Volume 9.1 fL (7.4-10.4) 9.1 fL (7.4-10.4) Neutrophils (%) (Auto) 89.3 % Lymphocytes (%) (Auto) 6.2 % Monocytes (%) (Auto) 3.2 % Eosinophils (%) (Auto) 0.1 % Basophils (%) (Auto) 0.1 % Neutrophils # (Auto) 12.33 K/uL (1.4-6.5) Lymphocytes # (Auto) 0.85 K/uL (1.2-3.4) Monocytes # (Auto) 0.44 K/uL (0.11-0.59) Eosinophils # (Auto) 0.02 K/uL (0-0.5) Basophils # (Auto) 0.01 K/uL (0-0.2) Immature Granulocyte # (Auto) 0.15 K/uL (0.00-0.02) Prothrombin Time 16.2 SECONDS (9.0-12.0) Prothromb Time International Ratio 1.6 (0.9-1.1) Magnesium Level 2.1 mg/dl (1.8-2.4) Total Bilirubin 0.9 mg/dl (0.2-1) Aspartate Amino Transf (AST/SGOT) 27 U/L (15-37) Alanine Aminotransferase (ALT/SGPT) 66 U/L (12-78) Alkaline Phosphatase 225 U/L (45-117) Total Protein 5.8 gm/dl (6.4-8.2) Albumin 2.2 gm/dl (3.4-5.0) Globulin 3.6 gm/dl (2.5-4.0) Albumin/Globulin Ratio 0.6 (0.9-2) Lactate Dehydrogenase 219 U/L (84-246) Carcinoembryonic Antigen < 0.5 ng/ml (0-2.5) RDW Standard Deviation 49.4 fL (36.4-46.3) RDW Coefficient of Variation 16.4 % (11.5-14.5) Anion Gap 7.0 mmol/L (3-11) Est Creatinine Clear Calc Drug Dose 63.6 ml/min Estimated GFR () 104.1 Estimated GFR (Non- 89.8 BUN/Creatinine Ratio 6.8 (10-20) Calcium Level 7.4 mg/dl (8.5-10.1) Urine Color YELLOW Urine Appearance CLEAR (CLEAR) Urine pH 7.5 (4.5-7.5) Urine Specific [place] 1.012 (1.000-1.030) Urine Protein NEG (NEG) Urine Glucose (UA) NEG (NEG) Urine Ketones NEG (NEG) Urine Occult Blood TRACE (NEG) Urine Nitrite NEG (NEG) Urine Bilirubin NEG (NEG) Urine Urobilinogen POS (NEG) Urine Leukocyte Esterase NEG (NEG) Urine WBC (Auto) 1-5 /hpf (0-5) Urine RBC (Auto) 5-10 /hpf (0-4) Urine Hyaline Casts (Auto) 0 /lpf (0-5) Urine Epithelial Cells (Auto) 5-10 /lpf (0-5) Urine Bacteria (Auto) NEG (NEG) Date/Time Source Procedure Growth Status 12/06/17 04:46 Blood Blood Culture Pending Received 12/06/17 05:35 Urine , Clean Catch Urine Culture Pending Received Last 24 Hours Test 12/05/17 09:55 12/05/17 13:41 12/06/17 04:46 12/06/17 05:35 White Blood Count 13.80 K/uL 12.55 K/uL Red Blood Count 4.11 M/uL 3.76 M/uL Hemoglobin 11.5 g/dL 10.5 g/dL Hematocrit 34.0 % 30.9 % Mean Corpuscular Volume 82.7 fL 82.2 fL Mean Corpuscular Hemoglobin 28.0 pg 27.9 pg Mean Corpuscular Hemoglobin Concent 33.8 g/dl 34.0 g/dl Platelet Count 396 K/uL 367 K/uL Mean Platelet Volume 9.1 fL 9.1 fL Neutrophils (%) (Auto) 89.3 % Lymphocytes (%) (Auto) 6.2 % Monocytes (%) (Auto) 3.2 % Eosinophils (%) (Auto) 0.1 % Basophils (%) (Auto) 0.1 % Neutrophils # (Auto) 12.33 K/uL Lymphocytes # (Auto) 0.85 K/uL Monocytes # (Auto) 0.44 K/uL Eosinophils # (Auto) 0.02 K/uL Basophils # (Auto) 0.01 K/uL RDW Standard Deviation 49.8 fL 49.4 fL RDW Coefficient of Variation 16.5 % 16.4 % Immature Granulocyte % (Auto) 1.1 % Immature Granulocyte # (Auto) 0.15 K/uL Prothrombin Time 16.2 SECONDS Prothromb Time International Ratio 1.6 Sodium Level 134 mmol/L 134 mmol/L Potassium Level 3.1 mmol/L 3.3 mmol/L Chloride Level 103 mmol/L 104 mmol/L Carbon Dioxide Level 25 mmol/L 23 mmol/L Anion Gap 7.0 mmol/L 7.0 mmol/L Blood Urea Nitrogen 6 mg/dl 4 mg/dl Creatinine 0.61 mg/dl 0.55 mg/dl Est Creatinine Clear Calc Drug Dose 57.3 ml/min 63.6 ml/min Estimated GFR () 100.6 104.1 Estimated GFR (Non- 86.8 89.8 BUN/Creatinine Ratio 9.5 6.8 Random Glucose 103 mg/dl 123 mg/dl Calcium Level 7.5 mg/dl 7.4 mg/dl Magnesium Level 2.1 mg/dl Total Bilirubin 0.9 mg/dl Aspartate Amino Transf (AST/SGOT) 27 U/L Alanine Aminotransferase (ALT/SGPT) 66 U/L Alkaline Phosphatase 225 U/L Total Protein 5.8 gm/dl Albumin 2.2 gm/dl Globulin 3.6 gm/dl Albumin/Globulin Ratio 0.6 Lactate Dehydrogenase 219 U/L Carcinoembryonic Antigen < 0.5 ng/ml Urine Color YELLOW Urine Appearance CLEAR Urine pH 7.5 Urine Specific [place] 1.012 Urine Protein NEG Urine Glucose (UA) NEG Urine Ketones NEG Urine Occult Blood TRACE Urine Nitrite NEG Urine Bilirubin NEG Urine Urobilinogen POS Urine Leukocyte Esterase NEG Urine WBC (Auto) 1-5 /hpf Urine RBC (Auto) 5-10 /hpf Urine Hyaline Casts (Auto) 0 /lpf Urine Epithelial Cells (Auto) 5-10 /lpf Urine Bacteria (Auto) NEG Date/Time Source Procedure Growth Status 12/06/17 04:46 Blood Blood Culture Pending Received 12/06/17 04:46 Blood Blood Culture Pending Received 12/06/17 05:35 Urine , Clean Catch Urine Culture Pending Received Assessment & Plan 77-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 She underwent endoscopy revealing a flat nonbleeding ulcer in the duodenum. There is a concern this may be malignant and she is at high risk of bleeding. Coumadin was held and GI is working with gastroenterology in [place] for future directions. They are recommending a repeat EGD in 3-4 weeks with a side endoscopy. Overnight she was febrile but denied night sweats. She was pancultured and placed on Zosyn empirically. She still reports intolerance of food related to a lack of appetite. She is not advanced from a clear liquid diet at this time. I discussed the plan in detail with she and her daughter at bedside. She is awaiting an MRI of the abdomen this morning. She denies any chest pain shortness of breath, nausea, vomiting and does not appear clinically septic. 1. Nonbleeding duodenal ulcer-likely a cause of her abdominal discomfort. Continue PPI drip per GI recommendations for 48 hours. Continue to hold Coumadin and consider transfer if patient believes for IR therapy. Stool H pylori ordered. Added Tums to help with symptoms as needed. Continue to advance diet as tolerated. 2. PVT-likely contributing to abdominal pain and symptoms. Coumadin is currently on hold per GI recommendations. When okay to restart this will need bridge therapy with Lovenox. Consulted hematology to assist with continued workup while patient is in the hospital. In the setting of concerning mesenteric nodules weight loss and night sweats malignancy is high concern. 3. Abdominal tenderness-multiple issues going on including duodenal ulcer, PVT with extension into mesenteric veins, and soft tissue mesenteric nodules found on CT. Differential includes a concern for peritoneal carcinomatosis. Hematology saw patient yesterday and ordered tumor markers. CEA is negative at this time with others pending. Hypercoagulable workup ordered and pending. Tenderness seems to have worsened somewhat overnight. Zosyn empirically started as above. Await MRI of the abdomen this morning. 4. Hypokalemia-replaced. Repeat PRP in a.m. 5. Anemia-no active bleeding is present. This is likely a dilution from IV fluids. Continue to monitor CBC and clinical signs of bleeding. DVT prophylaxis SCDs currently, Coumadin on hold with contraindication Full code Disposition-likely hospitalized through the weekend or until reliably tolerating p.o. Nena Zee DO [facility] hospitalist Consultants: GI-Dr. Wolfe Hematology-Dr. Mazariegos Current Inpatient Medications: Current Inpatient Medications Medications (Trade) Dose Ordered Sig/Shant Route Start Time Stop Time Status Last Admin Dose Admin Ioversol (Optiray 320) 125 ml UD PRN IV 12/03/17 14:30 12/07/17 14:29 Acetaminophen (Tylenol Tab) 650 mg Q4H PRN PO 12/03/17 17:00 01/02/18 16:59 12/05/17 14:10 650 MG Ondansetron HCl (Zofran Inj) 4 mg Q6H PRN IV 12/03/17 17:00 01/02/18 16:59 Potassium Chloride/Dextrose/ Sod Cl 1,000 ml @ 100 mls/hr Q10H IV 12/04/17 08:45 01/03/18 08:44 12/05/17 23:35 100 MLS/HR Pantoprazole Sodium 40 mg/ Dextrose 100 ml @ 20 mls/hr Q5H IV 12/04/17 15:45 01/03/18 15:44 12/06/17 03:20 20 MLS/HR Polyethylene (Miralax Powder Packet) 17 gm DAILY PRN PO 12/04/17 17:30 01/03/18 17:29 Calcium Carbonate (Tums Chew Tab) 500 mg QID PRN PO 12/05/17 12:30 01/04/18 12:29 Miscellaneous Information (Consult) 1 ea UD PRN N/A 12/06/17 04:45 01/05/18 04:44 Piperacillin Sod/ Tazobactam Sod 3.375 gm/Sodium Chloride 115 ml @ 28.75 mls/ hr Q8H IV 12/06/17 10:00 12/16/17 09:59
--- NOTE | 2017-12-06 11:50 | DIAGNOSTIC IMAGING REPORT ---
CHEST 2 VIEWS ROUTINE CLINICAL HISTORY: Fever, portal vein thrombus. COMPARISON STUDY: 12/03/2017 FINDINGS: The heart is normal in size. There is mild elevation of the interstitium. An element of mild pulmonary vascular congestion not be excluded. There is no focal pulmonary consolidation. There is a suspected trace right pleural effusion.[ IMPRESSION: 1. No evidence of focal pulmonary consolidation 2. Slight interstitial prominence. An element of mild pulmonary vascular congestion must be considered. Electronically signed by: Rolando Chen M.D. 12/06/2017 11:48 AM Dictated Date/Time: 12/06/2017 11:47 AM
[2017-12-06] MEDS ORDERED: GADOXETATE DISODIUM (NON-WT BASED PROCEDURE) IV PRN (12:00)
--- NOTE | 2017-12-06 12:02 | DIAGNOSTIC IMAGING REPORT ---
MRI ABDOMEN COMBO CLINICAL HISTORY: Portal vein thrombus. Prominent pancreatic head. TECHNIQUE: Imaging was performed prior to and following IV contrast injection. The patient was administered 10 cc of intravenous Eovist. Imaging was performed in the coronal and axial planes. COMPARISON STUDY: CT scan dated 12/03/2017 FINDINGS: There are no suspicious areas of marrow replacement. There is a trace right pleural effusion. There is trace perihepatic fluid. No focal hepatic masses are visualized. There is thrombus within the main portal vein, and there is thrombus within the right portal vein and portal vein radicles. There are subcentimeter left renal cysts. No solid renal masses are visualized. No splenic masses are visualized. No pancreatic masses are visualized. There is no pancreatic ductal dilatation. There is no intrahepatic biliary ductal dilatation. No gallbladder abnormalities are visualized. The common bile duct is of normal caliber. There is thrombus within the superior mesenteric vein. There is persistent nodularity within the mesentery at the level the left upper quadrant. It is possible that this represents thrombosed mesenteric veins. There is a prominent duodenal diverticulum. IMPRESSION: 1. Thrombus within the main portal vein, superior mesenteric vein, and inferior mesenteric vein. Thrombosed right portal vein and portal vein radicles 2. No focal hepatic masses. No pancreatic masses. No biliary or pancreatic ductal dilatation 3. No splenic masses. 4. Left renal cyst. No solid renal masses 5. Trace right pleural effusion and trace perihepatic fluid 6. Left upper quadrant peritoneal nodularity. On the prior CT scan, this is reported as suspicious for carcinomatosis. On MRI, it is possible that these nodular foci represent thrombosed mesenteric venous radicles, and not tumor nodules. Close follow-up is recommended.. Electronically signed by: Rolando Chen M.D. 12/06/2017 12:00 PM Dictated Date/Time: 12/06/2017 11:49 AM
[2017-12-06] MEDS: PIPERACILL/TAZOBAC IV 3.375 GM in NSS 100ML IV SCH ×2 (12:11→22:37)
--- NOTE | 2017-12-06 12:11 | Gastroenterology Progress Note ---
Progress Note Date of Service: Dec 06, 2017 Subjective Pt evaluation today including: conversation w/ patient, conversation w/ family , conversation w/ storage management consultant States she feels incrementally better, possibly had a small black smear of stool. Walking around the room, no overt GI bleeding. Has been having fevers over the last 24 hours. Cultures have been obtained and started on IV antibiotics empirically. But states that she is improved Review of Systems Constitutional: + see HPI Eyes: No see HPI, No worsening of vision, No eye pain, No redness, No discharge , No diplopia, No problem reported ENT: No see HPI, No hearing loss, No unusual epistaxis, No nasal symptoms, No sore throat, No tinnitus, No dental problems, No trouble swallowing, No pain on swallowing, No problem reported Respiratory: No see HPI, No cough, No sputum, No wheezing, No shortness of breath, No dyspnea on exertion, No dyspnea at rest, No hemoptysis, No problem reported Cardiac: No see HPI, No chest pain, No orthopnea, No PND, No edema, No claudication, No palpitations, No problem reported Abdomen: No see HPI, No pain, No nausea, No vomiting, No diarrhea, No constipation, No GI bleeding, No dysphagia, No odynophagia, No acolic stools, No jaundice, No dark urine, No problem reported Musculoskeletal: No see HPI, No joint pain, No muscle pain, No swelling, No calf pain, No problem reported Female : No see HPI, No dysuria, No urinary frequency, No hematuria, No incontinence, No abnormal vaginal bleeding, No vaginal discharge, No problem reported Neuro: No see HPI, No memory loss, No paralysis, No weakness, No numbness/ tingling, No vertigo, No balance problems, No problem reported Heme: No see HPI, No abnormal bleeding/bruising, No clotting problems, No swollen lymph nodes, No night sweats, No problem reported Endo: No see HPI, No fatigue, No excessive thirst, No excessive urination, No problem reported Medications Current Inpatient Medications Medications (Trade) Dose Ordered Sig/Shant Route Start Time Stop Time Status Last Admin Dose Admin Ioversol (Optiray 320) 125 ml UD PRN IV 12/03/17 14:30 12/07/17 14:29 Acetaminophen (Tylenol Tab) 650 mg Q4H PRN PO 12/03/17 17:00 01/02/18 16:59 12/05/17 14:10 650 MG Ondansetron HCl (Zofran Inj) 4 mg Q6H PRN IV 12/03/17 17:00 01/02/18 16:59 Potassium Chloride/Dextrose/ Sod Cl 1,000 ml @ 100 mls/hr Q10H IV 12/04/17 08:45 01/03/18 08:44 12/06/17 09:39 100 MLS/HR Pantoprazole Sodium 40 mg/ Dextrose 100 ml @ 20 mls/hr Q5H IV 12/04/17 15:45 01/03/18 15:44 12/06/17 08:23 20 MLS/HR Polyethylene (Miralax Powder Packet) 17 gm DAILY PRN PO 12/04/17 17:30 01/03/18 17:29 Calcium Carbonate (Tums Chew Tab) 500 mg QID PRN PO 12/05/17 12:30 01/04/18 12:29 Miscellaneous Information (Consult) 1 ea UD PRN N/A 12/06/17 04:45 01/05/18 04:44 Piperacillin Sod/ Tazobactam Sod 3.375 gm/Sodium Chloride 115 ml @ 28.75 mls/ hr Q8H IV 12/06/17 10:00 12/16/17 09:59 Gadoxetate Disodium (Eovist (Non-Wt Based Procedure)) 10 ml UD PRN IV 12/06/17 12:00 12/10/17 11:59 UNV Objective Vital Signs Date Time Temp Pulse Resp B/P (MAP) Pulse Ox O2 Delivery O2 Flow Rate FiO2 12/06/17 08:00 Room Air 12/06/17 07:06 36.9 82 17 145/73 (97) 96 Room Air 12/06/17 04:35 37.1 89 17 159/75 (103) 98 Room Air 12/06/17 00:00 Room Air 12/05/17 22:46 38.0 86 20 159/77 (104) 98 Room Air 12/05/17 19:28 36.8 87 19 139/74 (95) 96 Room Air 12/05/17 16:30 37.2 12/05/17 15:30 Room Air 12/05/17 14:15 114 20 181/93 (122) 97 12/05/17 14:14 39.3 Physical Exam General Appearance: WD/WN, no apparent distress, + thin ENT: normal ENT inspection Neck: supple, thyroid normal Respiratory/Chest: chest non-tender, lungs clear, no respiratory distress Cardiovascular: regular rate, rhythm, no edema, no gallop Abdomen: normal bowel sounds, non tender, soft Extremities: normal range of motion, no pedal edema 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 as 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 Laboratory Results Last 24 Hours Test 12/05/17 13:41 12/06/17 04:46 12/06/17 05:35 Lactate Dehydrogenase 219 U/L Carcinoembryonic Antigen < 0.5 ng/ml White Blood Count 12.55 K/uL Red Blood Count 3.76 M/uL Hemoglobin 10.5 g/dL Hematocrit 30.9 % Mean Corpuscular Volume 82.2 fL Mean Corpuscular Hemoglobin 27.9 pg Mean Corpuscular Hemoglobin Concent 34.0 g/dl RDW Standard Deviation 49.4 fL RDW Coefficient of Variation 16.4 % Platelet Count 367 K/uL Mean Platelet Volume 9.1 fL Sodium Level 134 mmol/L Potassium Level 3.3 mmol/L Chloride Level 104 mmol/L Carbon Dioxide Level 23 mmol/L Anion Gap 7.0 mmol/L Blood Urea Nitrogen 4 mg/dl Creatinine 0.55 mg/dl Est Creatinine Clear Calc Drug Dose 63.6 ml/min Estimated GFR () 104.1 Estimated GFR (Non- 89.8 BUN/Creatinine Ratio 6.8 Random Glucose 123 mg/dl Calcium Level 7.4 mg/dl Urine Color YELLOW Urine Appearance CLEAR Urine pH 7.5 Urine Specific [place] 1.012 Urine Protein NEG Urine Glucose (UA) NEG Urine Ketones NEG Urine Occult Blood TRACE Urine Nitrite NEG Urine Bilirubin NEG Urine Urobilinogen POS Urine Leukocyte Esterase NEG Urine WBC (Auto) 1-5 /hpf Urine RBC (Auto) 5-10 /hpf Urine Hyaline Casts (Auto) 0 /lpf Urine Epithelial Cells (Auto) 5-10 /lpf Urine Bacteria (Auto) NEG Assessment and Plan 77-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 I discussed with her today I would continue conservative care, the size and location of this ulcer, although initially thought to be benign certainly could still be malignant and will need to be followed up on and suggest EGD tomorrow with side-viewing endoscope that was not available at the time of the EGD.. I called transplant surgery in [place] for review of her CT scan and felt that appropriate treatment was being given. Obviously anticoagulation should be pursued but is high risk given his large duodenal ulcer. Given her extensive thrombus and ulcer he initially suggested that she may need IR thrombectomy but given that she does have some flow in the portal vein that would not be indicated. Fortunately she has had no signs of bleeding, would continue the IV PPI infusion for now, hold on anticoagulation for now, continue liquid diet and can advance as tolerated. Will need follow-up endoscopy with side-viewing endoscope (not available at the time of the EGD) plan tomorrow Dr. Webb to ensure no malignancy is identified. Would suggest a discharge twice daily PPI indefinitely. Agree with IV antibiotics and following cultures, MRI today specifically reveals no evidence of pancreatic mass, no duodenal mass, no peritoneal nodules as discussed, and no abscess in the liver. N.p.o. after midnight EGD in the morning Call with questions
[2017-12-06] MEDS: ACETAMINOPHEN 325 MG TAB PO PRN (18:27)
--- NOTE | 2017-12-06 20:15 | Hematology/Oncology Prog Note ---
Hematology/Onc Progress Note Date of Service Dec 06, 2017. Subjective Feels improved today Still has sweats and chills on and off but states overall feels better and less weakness/fatigue and also epigastric pain is decreased She is planned for EGD tomorrow Vital Signs Vital Signs Past 12 Hours Date Time Temp Pulse Resp B/P (MAP) Pulse Ox O2 Delivery O2 Flow Rate FiO2 12/06/17 18:46 37.0 109 20 190/98 (128) 93 Room Air 12/06/17 18:32 39.2 12/06/17 16:00 Room Air 12/06/17 14:52 36.9 85 18 159/72 (101) 95 Room Air 12/06/17 12:51 36.3 97 18 166/73 (104) 99 Room Air Physical Exam Gen: awake and alert NAD Lungs: CTAB CV:S S2 RRR Abd: soft +epigastric tenderness Ext: no edema nontender Laboratory Results Past 24 Hours Test 12/06/17 04:46 12/06/17 05:35 Range/Units White Blood Count 12.55 4.8-10.8 K/uL Red Blood Count 3.76 4.2-5.4 M/uL Hemoglobin 10.5 12.0-16.0 g/dL Hematocrit 30.9 37-47 % Mean Corpuscular Volume 82.2 80-100 fL Mean Corpuscular Hemoglobin 27.9 25-34 pg Mean Corpuscular Hemoglobin Concent 34.0 32-36 g/dl RDW Standard Deviation 49.4 36.4-46.3 fL RDW Coefficient of Variation 16.4 11.5-14.5 % Platelet Count 367 130-400 K/uL Mean Platelet Volume 9.1 7.4-10.4 fL Sodium Level 134 136-145 mmol/L Potassium Level 3.3 3.5-5.1 mmol/L Chloride Level 104 98-107 mmol/L Carbon Dioxide Level 23 21-32 mmol/L Anion Gap 7.0 3-11 mmol/L Blood Urea Nitrogen 4 7-18 mg/dl Creatinine 0.55 0.60-1.20 mg/dl Est Creatinine Clear Calc Drug Dose 63.6 ml/min Estimated GFR () 104.1 Estimated GFR (Non- 89.8 BUN/Creatinine Ratio 6.8 10-20 Random Glucose 123 70-99 mg/dl Calcium Level 7.4 8.5-10.1 mg/dl Urine Color YELLOW Urine Appearance CLEAR CLEAR Urine pH 7.5 4.5-7.5 Urine Specific [place] 1.012 1.000-1.030 Urine Protein NEG NEG Urine Glucose (UA) NEG NEG Urine Ketones NEG NEG Urine Occult Blood TRACE NEG Urine Nitrite NEG NEG Urine Bilirubin NEG NEG Urine Urobilinogen POS NEG Urine Leukocyte Esterase NEG NEG Urine WBC (Auto) 1-5 0-5 /hpf Urine RBC (Auto) 5-10 0-4 /hpf Urine Hyaline Casts (Auto) 0 0-5 /lpf Urine Epithelial Cells (Auto) 5-10 0-5 /lpf Urine Bacteria (Auto) NEG NEG Microbiology Results 12/06/17 Blood Culture, Received Pending 12/06/17 Blood Culture, Received Pending 12/06/17 Urine Culture, Received Pending Radiology MRI abdomen: 1. Thrombus within the main portal vein, superior mesenteric vein, and inferior mesenteric vein. Thrombosed right portal vein and portal vein radicles 2. No focal hepatic masses. No pancreatic masses. No biliary or pancreatic ductal dilatation 3. No splenic masses. 4. Left renal cyst. No solid renal masses 5. Trace right pleural effusion and trace perihepatic fluid 6. Left upper quadrant peritoneal nodularity. On the prior CT scan, this is reported as suspicious for carcinomatosis. On MRI, it is possible that these nodular foci represent thrombosed mesenteric venous radicles, and not tumor nodules. Close follow-up is recommended.. Assessment & Plan 77 year old female with Superior mesenteric vein and portal vein thrombus. There is also a suspected thrombosed left-sided mesenteric vein No pancreas mass on MRI and no hepatic abscess seen on MRI Anticoagulation on hold per GI due to duodenal ulcer. She has EGD planned for tomorrow F/U hypercoag workup CA 125 and CA 19-9 pending recommend consider check CT chest if she continues to have fever/sweats I gave her my card and recommend follow up in the office when she is discharged
[2017-12-07] VITALS (9 sets, daily range): BP systolic 140–174; BP diastolic 75–90; PULSE 74–101; TEMP 36.2–37.1; O2SAT 97–99; Ht 154.9 cm; Wt 55.2 kg
[2017-12-07] MEDS: PIPERACILL/TAZOBAC IV 3.375 GM in NSS 100ML IV SCH ×3 (03:35→20:14)
[2017-12-07] MEDS: PANTOprazole INJ 40 MG in DEXTROSE 5% 100ML IV SCH ×3 (03:35→13:37)
[2017-12-07] MEDS: D5NSS + 20MEQ KCL 1,000 ML IV SCH ×2 (06:06→16:33)
[2017-12-07] MEDS ORDERED: ACETAMINOPHEN 650 MG SUPP PR PRN (07:00)
--- NOTE | 2017-12-07 10:25 | Gastroenterology Progress Note ---
Progress Note Date of Service: Dec 07, 2017 Subjective Pt evaluation today including: conversation w/ patient, conversation w/ family , physical exam, chart review, lab review Pt seen and evaluated, chart reviewed. No acute events noted overnight. Daughter is at bedside. Notes improvement of her abdominal pain since started on PPI. She did have a loose, dark stool overnight. Otherwise, no black or bloody stools. No nausea, vomiting. Is hungry. Blood cultures pending, negative to date obtained due to fevers over the weekend. Review of Systems Constitutional: No fever, No chills Respiratory: No cough, No shortness of breath Cardiac: No chest pain, No edema Abdomen: + pain, No nausea, No vomiting, No diarrhea, No constipation, No GI bleeding Medications Current Inpatient Medications Medications (Trade) Dose Ordered Sig/Shant Route Start Time Stop Time Status Last Admin Dose Admin Ioversol (Optiray 320) 125 ml UD PRN IV 12/03/17 14:30 12/07/17 14:29 Acetaminophen (Tylenol Tab) 650 mg Q4H PRN PO 12/03/17 17:00 01/02/18 16:59 12/06/17 18:27 650 MG Ondansetron HCl (Zofran Inj) 4 mg Q6H PRN IV 12/03/17 17:00 01/02/18 16:59 Potassium Chloride/Dextrose/ Sod Cl 1,000 ml @ 100 mls/hr Q10H IV 12/04/17 08:45 01/03/18 08:44 12/07/17 06:06 100 MLS/HR Pantoprazole Sodium 40 mg/ Dextrose 100 ml @ 20 mls/hr Q5H IV 12/04/17 15:45 01/03/18 15:44 12/07/17 09:12 20 MLS/HR Polyethylene (Miralax Powder Packet) 17 gm DAILY PRN PO 12/04/17 17:30 01/03/18 17:29 Calcium Carbonate (Tums Chew Tab) 500 mg QID PRN PO 12/05/17 12:30 01/04/18 12:29 Miscellaneous Information (Consult) 1 ea UD PRN N/A 12/06/17 04:45 01/05/18 04:44 Piperacillin Sod/ Tazobactam Sod 3.375 gm/Sodium Chloride 115 ml @ 28.75 mls/ hr Q8H IV 12/06/17 10:00 12/16/17 09:59 12/07/17 03:35 28.75 MLS/HR Gadoxetate Disodium (Eovist (Non-Wt Based Procedure)) 10 ml UD PRN IV 12/06/17 12:00 12/10/17 11:59 Acetaminophen (Tylenol Supp) 650 mg Q4H PRN GA 12/07/17 07:00 01/06/18 06:59 Objective Vital Signs Date Time Temp Pulse Resp B/P (MAP) Pulse Ox O2 Delivery O2 Flow Rate FiO2 12/07/17 08:19 97 Room Air 12/07/17 07:42 36.7 89 18 140/80 (100) 97 Room Air 12/07/17 04:38 36.6 74 18 166/79 (108) 99 Room Air 12/07/17 00:00 98 Room Air 12/06/17 23:49 36.5 80 19 128/72 (90) 98 Room Air 12/06/17 18:46 37.0 109 20 190/98 (128) 93 Room Air 12/06/17 18:32 39.2 12/06/17 16:00 Room Air 12/06/17 14:52 36.9 85 18 159/72 (101) 95 Room Air 12/06/17 12:51 36.3 97 18 166/73 (104) 99 Room Air Physical Exam General Appearance: no apparent distress Eyes: PERRL ENT: hearing grossly normal Neck: supple, trachea midline Respiratory/Chest: lungs clear Cardiovascular: regular rate, rhythm Abdomen: normal bowel sounds, non tender, soft, no organomegaly Neurologic/Psych: alert, normal mood/affect, oriented x 3 Skin: normal color, no rash Assessment and Plan 77-year-old female with idiopathic extensive portal vein, superior mesenteric vein thrombus who presented to [facility] w. upper abdominal pain, anorexia. EGD w/ large duodenal ulcer - bx were not obtained at the time as INR was still elevated. She is NPO for EGD this AM - will need bx to rule out malignancy. - NPO - EGD today - Continue IV PPI - Continue IV ABX - Continue to monitor for s/s of GI blood loss - Depending results, transfer to tertiary care center to be considered - Hepatology - IR - Additional recommendation can be found in report of EGD when completed. Please call with any questions or concerns. I performed a history and physical examination of the patient. I have discussed the patient's case, impression and plan with STAR Perry. Her note reflects my findings and plan. Agree with Egd and possible biopsies. Pranay Webb MD
--- NOTE | 2017-12-07 11:08 | Endo History and Physical ---
History & Physical Date of Service: Dec 07, 2017. Chief Complaint: duodenal ulcer Referring Physician: History of Present Illness pt with duodenal ulcer and abnormal imaging of GI tract Past Surgical History Hx Cardiac Surgery: No Hx Abdominal Surgery: Yes (HYSTER ) Hx Post-Op Nausea and Vomiting: No Hx Cancer Surgery: Yes (SKIN CA ) Hx Thoracic Surgery: No Hx Orthopedic: Yes (LEFT KNEE ) Hx Urinary Tract Surgery: No Social History Smoking Status: Never Smoker Smokeless Tobacco Use: No Hx Substance Use: No Hx Alcohol Use: No Allergies Coded Allergies: No Known Allergies (Unverified , 12/03/17) Current Medications Reported Home Medications Medications Dose Route/Sig Max Daily Dose Days Date Category Dose Instructions Coumadin (Warfarin Sod) 5 Mg Tab 2.5 Mg PO 2XWK 12/03/17 Reported Tu, Thurs Jantoven (Warfarin Sodium) 5 Mg Tab 5 Mg PO 5XWK 12/03/17 Reported Mon, Wed, Fri, Sat, Sun Vital Signs Weight (Kilograms): 59.000 Height (Feet): 5 Height (Inches): 1.00 Date Time Temp Pulse Resp B/P (MAP) Pulse Ox O2 Delivery O2 Flow Rate FiO2 12/07/17 08:19 97 Room Air 12/07/17 07:42 36.7 89 18 140/80 (100) 97 Room Air 12/07/17 04:38 36.6 74 18 166/79 (108) 99 Room Air 12/07/17 00:00 98 Room Air 12/06/17 23:49 36.5 80 19 128/72 (90) 98 Room Air 12/06/17 18:46 37.0 109 20 190/98 (128) 93 Room Air 12/06/17 18:32 39.2 12/06/17 16:00 Room Air 12/06/17 14:52 36.9 85 18 159/72 (101) 95 Room Air 12/06/17 12:51 36.3 97 18 166/73 (104) 99 Room Air Physical Exam General Appearance: no apparent distress Respiratory/Chest: Auscultation: breath sounds normal Cardiovascular: Heart Auscultation: RRR Abdomen: Inspection & Palpation: soft Liver: non-tender Assessment and Plan stable for EGD
[2017-12-07] MEDS ORDERED: LIDOCAINE HCL 2% 2 ML VIAL (20MG/ML) ONE (12:10)
[2017-12-07] MEDS ORDERED: PROPOFOL IV EMULSION 10 MG/ML 20 ML VIAL IV ONE (12:10)
--- NOTE | 2017-12-07 12:33 | Anesthesiology Progress Note ---
Anesthesia Post Op Note Date & Time Dec 07, 2017 at 12:33 Vital Signs Pain Intensity: 0.0 Vital Signs Past 12 Hours Date Time Temp Pulse Resp B/P (MAP) Pulse Ox O2 Delivery O2 Flow Rate FiO2 12/07/17 12:19 73 18 147/81 (103) 97 Room Air 12/07/17 12:04 74 18 128/72 (90) 97 Room Air 12/07/17 11:02 37.4 82 18 177/85 (115) 96 Room Air 12/07/17 08:19 97 Room Air 12/07/17 08:00 Room Air 12/07/17 07:42 36.7 89 18 140/80 (100) 97 Room Air 12/07/17 04:38 36.6 74 18 166/79 (108) 99 Room Air Notes Mental Status: alert / awake / arousable, participated in evaluation Pt Amnestic to Procedure: Yes Nausea / Vomiting: adequately controlled Pain: adequately controlled Airway Patency, RR, SpO2: stable & adequate BP & HR: stable & adequate Hydration State: stable & adequate Anesthetic Complications: no major complications apparent
--- NOTE | 2017-12-07 12:33 | GI REPORT ---
Procedure Date: 12/07/2017 11:48 AM Procedure: Upper GI endoscopy Indications: Acute duodenal ulcer, Follow-up of acute duodenal ulcer, Abnormal CT of the GI tract Medicines: See the Anesthesia note for documentation of the administered medications Complications: No immediate complications. Estimated Blood Loss: Estimated blood loss: none. Procedure: Pre-Anesthesia Assessment: - Prior to the procedure, a History and Physical was performed, and patient medications, allergies and sensitivities were reviewed. The patient's tolerance of previous anesthesia was reviewed. - The risks and benefits of the procedure and the sedation options and risks were discussed with the patient. All questions were answered and informed consent was obtained. - Patient identification and proposed procedure were verified prior to the procedure by the physician and the nurse. The procedure was verified in the pre-procedure area. - Pre-procedure physical examination revealed no contraindications to sedation. - After reviewing the risks and benefits, the patient was deemed in satisfactory condition to undergo the procedure. After obtaining informed consent, the endoscope was passed under direct vision. Throughout the procedure, the patient's blood pressure, pulse, and oxygen saturations were monitored continuously. The Scope was introduced through the mouth, and advanced to the third part of duodenum. The upper GI endoscopy was accomplished without difficulty. The patient tolerated the procedure well. Findings: The esophagus was normal except for a non obstructing ring. The stomach was normal. One non-bleeding cratered duodenal ulcer with no stigmata of bleeding was found in the first portion of the duodenum. The cardia and gastric fundus were normal on retroflexion. Impression: - Normal esophagus except for benign non obstructing lower ring. - Normal stomach. - One non-bleeding duodenal ulcer with no stigmata of bleeding. This was benign appearing. - No specimens collected. Recommendation: - [facility]. - Patient needs to be on BID PPI for 2 months than daily PPI indefinitely. - Continue work up as per hematology. - I will arrange a repeat EGD in 3 weeks. Pranay Webb M.D. Pranay Webb MD 12/07/2017 12:32:34 PM This report has been signed electronically. Note Initiated On: 12/07/2017 11:48 AM I attest to the content of the Intraoperative Record and orders documented therein, exceptions below
--- NOTE | 2017-12-07 12:34 | Anesthesiology Progress Note ---
Anesthesia Post Op Note Date & Time Dec 07, 2017 at 12:34 Vital Signs Pain Intensity: 0.0 Vital Signs Past 12 Hours Date Time Temp Pulse Resp B/P (MAP) Pulse Ox O2 Delivery O2 Flow Rate FiO2 12/07/17 12:19 73 18 147/81 (103) 97 Room Air 12/07/17 12:04 74 18 128/72 (90) 97 Room Air 12/07/17 11:02 37.4 82 18 177/85 (115) 96 Room Air 12/07/17 08:19 97 Room Air 12/07/17 08:00 Room Air 12/07/17 07:42 36.7 89 18 140/80 (100) 97 Room Air 12/07/17 04:38 36.6 74 18 166/79 (108) 99 Room Air Notes Mental Status: alert / awake / arousable, participated in evaluation Pt Amnestic to Procedure: Yes Nausea / Vomiting: adequately controlled Pain: adequately controlled Airway Patency, RR, SpO2: stable & adequate BP & HR: stable & adequate Hydration State: stable & adequate Anesthetic Complications: no major complications apparent
[2017-12-07] MEDS: PANTOprazole SOD 40 MG TAB PO SCH (20:14)
--- NOTE | 2017-12-07 23:06 | Progress Note ---
Medicine Progress Note Date & Time of Visit: Dec 07, 2017 at 16:51. 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 She underwent endoscopy revealing a flat nonbleeding ulcer in the duodenum. There was an initial concern this may be malignant however on repeat endoscopy today this was not thought probable. No biopsies were taken. Coumadin continued to be held until repeat CBC in a.m. MRI of the abdomen results were reviewed with patient and her daughter. She is beginning to tolerate p.o. well and is asking for solid food. She denies any abdominal pain which was present yesterday. Overall clinical improvement with some fevers and chills this morning. Objective Last 8 Hrs Date Time Temp Pulse Resp B/P (MAP) Pulse Ox O2 Delivery O2 Flow Rate FiO2 12/07/17 14:45 36.2 87 20 151/75 (100) 99 Room Air 12/07/17 13:09 36.4 88 18 174/88 (116) 98 Room Air 12/07/17 12:34 79 18 177/83 (114) 97 Room Air 12/07/17 12:19 73 18 147/81 (103) 97 Room Air 12/07/17 12:04 74 18 128/72 (90) 97 Room Air 12/07/17 11:02 37.4 82 18 177/85 (115) 96 Room Air Physical Exam: GEN: WNWD, in no acute distress, alert and appropriate HEENT: NC/AT, normal sclerae, MMM CARDIO: reg rate, S1/2 heard without m/g/r LUNGS: CTA bilaterally, no crackles, rales or wheezes, good diaphragmatic excursion ABD: soft, nontender, non-distended, no rebound or guarding, +BS EXTREMITY: RP and DP palpable 2+ bilat, no LE swelling or edema, extremities are warm and well-perfused NEURO: CN 2-12 grossly intact MUSC: 5/5 strength throughout, ambulatory, no gross focal deficits. SKIN: warm and dry Laboratory Results: 12/06/17 04:46 12/06/17 04:46 Test 12/03/17 14:27 12/03/17 14:35 12/03/17 15:33 12/04/17 23:29 Activated Partial Thromboplast Time 34.6 SECONDS (21.0-31.0) Partial Thromboplastin Ratio 1.3 Direct Bilirubin 0.2 mg/dl (0-0.2) Lipase 215 U/L (73-393) Bedside Hemoglobin 13.3 g/dl (12.0-16.0) Bedside Hematocrit 39 % (37-47) Bedside Sodium 133 mEq/L (135-144) Bedside Potassium 3.7 mEq/L (3.3-5.0) Bedside Chloride 96 mEq/L (101-112) Bedside Total CO2 25 mEq/l (24-31) Bedside Blood Urea Nitrogen 18 mg/dl (7-18) Bedside Creatinine 0.6 mg/dl (0.6-1.3) Bedside Glucose (other) 133 mg/dl (70-99) Bedside Ionized Calcium (Dagoberto) 1.10 mmol/l (1.12-1.32) Bedside Lactic Acid Venous 0.87 mmol/L (0.90-1.70) Stool Helicobacter pylori Antigen NOT DETECTED (NOT DETECTED) Test 12/05/17 09:55 12/05/17 13:41 12/06/17 04:46 12/06/17 05:35 Immature Granulocyte % (Auto) 1.1 % White Blood Count 13.80 K/uL (4.8-10.8) Red Blood Count 4.11 M/uL (4.2-5.4) 3.76 M/uL (4.2-5.4) Hemoglobin 11.5 g/dL (12.0-16.0) Hematocrit 34.0 % (37-47) Mean Corpuscular Volume 82.7 fL (80-100) 82.2 fL (80-100) Mean Corpuscular Hemoglobin 28.0 pg (25-34) 27.9 pg (25-34) Mean Corpuscular Hemoglobin Concent 33.8 g/dl (32-36) 34.0 g/dl (32-36) Platelet Count 396 K/uL (130-400) Mean Platelet Volume 9.1 fL (7.4-10.4) 9.1 fL (7.4-10.4) Neutrophils (%) (Auto) 89.3 % Lymphocytes (%) (Auto) 6.2 % Monocytes (%) (Auto) 3.2 % Eosinophils (%) (Auto) 0.1 % Basophils (%) (Auto) 0.1 % Neutrophils # (Auto) 12.33 K/uL (1.4-6.5) Lymphocytes # (Auto) 0.85 K/uL (1.2-3.4) Monocytes # (Auto) 0.44 K/uL (0.11-0.59) Eosinophils # (Auto) 0.02 K/uL (0-0.5) Basophils # (Auto) 0.01 K/uL (0-0.2) Immature Granulocyte # (Auto) 0.15 K/uL (0.00-0.02) Prothrombin Time 16.2 SECONDS (9.0-12.0) Prothromb Time International Ratio 1.6 (0.9-1.1) Magnesium Level 2.1 mg/dl (1.8-2.4) Total Bilirubin 0.9 mg/dl (0.2-1) Aspartate Amino Transf (AST/SGOT) 27 U/L (15-37) Alanine Aminotransferase (ALT/SGPT) 66 U/L (12-78) Alkaline Phosphatase 225 U/L (45-117) Total Protein 5.8 gm/dl (6.4-8.2) Albumin 2.2 gm/dl (3.4-5.0) Globulin 3.6 gm/dl (2.5-4.0) Albumin/Globulin Ratio 0.6 (0.9-2) Lactate Dehydrogenase 219 U/L (84-246) Carcinoembryonic Antigen < 0.5 ng/ml (0-2.5) RDW Standard Deviation 49.4 fL (36.4-46.3) RDW Coefficient of Variation 16.4 % (11.5-14.5) Anion Gap 7.0 mmol/L (3-11) Est Creatinine Clear Calc Drug Dose 63.6 ml/min Estimated GFR () 104.1 Estimated GFR (Non- 89.8 BUN/Creatinine Ratio 6.8 (10-20) Calcium Level 7.4 mg/dl (8.5-10.1) Urine Color YELLOW Urine Appearance CLEAR (CLEAR) Urine pH 7.5 (4.5-7.5) Urine Specific [place] 1.012 (1.000-1.030) Urine Protein NEG (NEG) Urine Glucose (UA) NEG (NEG) Urine Ketones NEG (NEG) Urine Occult Blood TRACE (NEG) Urine Nitrite NEG (NEG) Urine Bilirubin NEG (NEG) Urine Urobilinogen POS (NEG) Urine Leukocyte Esterase NEG (NEG) Urine WBC (Auto) 1-5 /hpf (0-5) Urine RBC (Auto) 5-10 /hpf (0-4) Urine Hyaline Casts (Auto) 0 /lpf (0-5) Urine Epithelial Cells (Auto) 5-10 /lpf (0-5) Urine Bacteria (Auto) NEG (NEG) Date/Time Source Procedure Growth Status 12/06/17 04:46 Blood Blood Culture - Preliminary NO GROWTH TO DATE. Resulted 12/06/17 05:35 Urine , Clean Catch Urine Culture - Preliminary NO GROWTH - LESS THAN 1,000 COLONIES/... 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 She underwent endoscopy revealing a flat nonbleeding ulcer in the duodenum. There was an initial concern this may be malignant however on repeat endoscopy today this was not thought probable. No biopsies were taken. Coumadin continued to be held until repeat CBC in a.m. MRI of the abdomen results were reviewed with patient and her daughter. She is beginning to tolerate p.o. well and is asking for solid food. She denies any abdominal pain which was present yesterday. Overall clinical improvement with some fevers and chills this morning. 1. Nonbleeding duodenal ulcer-likely a cause of her abdominal discomfort which is improved. Repeat endoscopy today. Stop PPI drip and continue PPI twice daily as directed. H. pylori was negative in the stool. Tums as needed symptoms. Advance diet to solid food. 2. PVT-likely contributing to abdominal pain and symptoms. Coumadin is currently on hold per GI recommendations pending repeat CBC in a.m.. When okay to restart this will need bridge therapy with Lovenox. 3. Abdominal tenderness-multiple issues going on including duodenal ulcer, PVT with extension into mesenteric veins, and soft tissue mesenteric nodules found on CT. MRA abdomen help to differentiate nodules on the mesentery likely secondary to thromboses. Hematology saw patient and ordered tumor markers. CEA is negative at this time with others pending. Hypercoagulable workup ordered and pending. Tenderness resolved overnight. Zosyn was empirically started, however blood cultures are negative and patient is clinically improved. As a result of the one fever this morning with episode of chills will read made on Zosyn overnight and likely DC with no continuation of antibiotics in the morning. 4. Hypokalemia-replaced. Repeat PRP in a.m. DVT prophylaxis SCDs currently, Coumadin on hold with contraindication Full code Disposition-likely DC in AM. Nena Zee DO [facility] hospitalist Consultants: GI-Dr. Wolfe Hematology-Dr. Mazariegos Current Inpatient Medications: Current Inpatient Medications Medications (Trade) Dose Ordered Sig/Shant Route Start Time Stop Time Status Last Admin Dose Admin Acetaminophen (Tylenol Tab) 650 mg Q4H PRN PO 12/03/17 17:00 01/02/18 16:59 12/06/17 18:27 650 MG Ondansetron HCl (Zofran Inj) 4 mg Q6H PRN IV 12/03/17 17:00 01/02/18 16:59 Potassium Chloride/Dextrose/ Sod Cl 1,000 ml @ 100 mls/hr Q10H IV 12/04/17 08:45 01/03/18 08:44 12/07/17 06:06 100 MLS/HR Pantoprazole Sodium 40 mg/ Dextrose 100 ml @ 20 mls/hr Q5H IV 12/04/17 15:45 01/03/18 15:44 12/07/17 13:37 20 MLS/HR Polyethylene (Miralax Powder Packet) 17 gm DAILY PRN PO 12/04/17 17:30 01/03/18 17:29 Calcium Carbonate (Tums Chew Tab) 500 mg QID PRN PO 12/05/17 12:30 01/04/18 12:29 Miscellaneous Information (Consult) 1 ea UD PRN N/A 12/06/17 04:45 01/05/18 04:44 Piperacillin Sod/ Tazobactam Sod 3.375 gm/Sodium Chloride 115 ml @ 28.75 mls/ hr Q8H IV 12/06/17 10:00 12/16/17 09:59 12/07/17 13:36 28.75 MLS/HR Gadoxetate Disodium (Eovist (Non-Wt Based Procedure)) 10 ml UD PRN IV 12/06/17 12:00 12/10/17 11:59 Acetaminophen (Tylenol Supp) 650 mg Q4H PRN PA 12/07/17 07:00 01/06/18 06:59
[2017-12-08 03:05] VITALS: BP 150/78; PULSE 90; TEMP 36.6; O2SAT 97
[2017-12-08] MEDS: PIPERACILL/TAZOBAC IV 3.375 GM in NSS 100ML IV SCH ×2 (03:35→12:29)
[2017-12-08 06:15] LABS: HEMOGLOBIN 10.8 g/dL (12.0-16.0); MEAN CELL VOLUME 81.4 fL (80-100); MEAN CORPUSCULAR HEMOGLOBIN 27.5 pg (25-34); MEAN CORPUSCULAR HGB CONC 33.8 g/dl (32-36); MEAN PLATELET VOLUME 9.1 fL (7.4-10.4); PLATELET COUNT 410 K/uL (130-400); RED CELL DISTRIBUTION WIDTH CV 16.8 % (11.5-14.5); RED CELL DISTRIBUTION WIDTH SD 50.5 fL (36.4-46.3); WHITE BLOOD COUNT 10.25 K/uL (4.8-10.8)
[2017-12-08 06:52] LABS: CALCIUM 8.1 mg/dl (8.5-10.1); CREATININE 0.6 mg/dl (0.60-1.20); PHOSPHORUS 1.9 mg/dl (2.5-4.9); POTASSIUM 2.9 mmol/L (3.5-5.1)
[2017-12-08] MEDS ORDERED: POTASSIUM CHLORIDE 20 MEQ TABCR PO STA (07:34)
[2017-12-08 07:39] VITALS: BP 160/79; PULSE 64; TEMP 36.7; O2SAT 96
[2017-12-08] MEDS: PANTOprazole SOD 40 MG TAB PO SCH ×2 (07:39→19:36)
--- NOTE | 2017-12-08 09:16 | Gastroenterology Progress Note ---
Progress Note Date of Service: Dec 08, 2017 Subjective Pt evaluation today including: conversation w/ patient, physical exam, chart review, lab review Pt was seen and evaluated, chart reviewed. Elevated LFTs evaluated by PCP w/ extensive PVT without evidence of liver disease. Was admitted to [facility] for abdominal pain, EGD w/ large duodenal ulcer. Pt notes feeling improved this AM. No acute events overnight. Abdominal pain continues to improve. Tolerating diet. No nausea, vomiting. No fever, chills, CP, SOB. Wants to go home. She is unsure about her plans for OP follow up. She tells me she no longer wishes for OP follow up with heme or hepatology. EGD 12/07/17: Normal esophagus except for benign non obstructing lower ring. Normal stomach. One non-bleeding duodenal ulcer with no stigmata of bleeding. This was benign appearing. No specimens collected. EGD 12/04/17: Hiatal hernia. Normal stomach. One non-bleeding duodenal ulcer with a flat pigmented spot (Jt Class IIc). No specimens collected Review of Systems Constitutional: No fever, No chills, No weight loss, No weakness Respiratory: No cough, No shortness of breath Cardiac: No chest pain, No edema Abdomen: No pain, No nausea, No vomiting, No diarrhea Medications Current Inpatient Medications Medications (Trade) Dose Ordered Sig/Shant Route Start Time Stop Time Status Last Admin Dose Admin Acetaminophen (Tylenol Tab) 650 mg Q4H PRN PO 12/03/17 17:00 01/02/18 16:59 12/06/17 18:27 650 MG Ondansetron HCl (Zofran Inj) 4 mg Q6H PRN IV 12/03/17 17:00 01/02/18 16:59 Polyethylene (Miralax Powder Packet) 17 gm DAILY PRN PO 12/04/17 17:30 01/03/18 17:29 Calcium Carbonate (Tums Chew Tab) 500 mg QID PRN PO 12/05/17 12:30 01/04/18 12:29 12/08/17 00:19 500 MG Miscellaneous Information (Consult) 1 ea UD PRN N/A 12/06/17 04:45 01/05/18 04:44 Piperacillin Sod/ Tazobactam Sod 3.375 gm/Sodium Chloride 115 ml @ 28.75 mls/ hr Q8H IV 12/06/17 10:00 12/16/17 09:59 12/08/17 03:35 28.75 MLS/HR Gadoxetate Disodium (Eovist (Non-Wt Based Procedure)) 10 ml UD PRN IV 12/06/17 12:00 12/10/17 11:59 Pantoprazole Sodium (Protonix Tab) 40 mg BID PO 12/07/17 20:00 01/06/18 19:59 12/08/17 07:39 40 MG Objective Vital Signs Date Time Temp Pulse Resp B/P (MAP) Pulse Ox O2 Delivery O2 Flow Rate FiO2 12/08/17 07:39 36.7 64 20 160/79 (106) 96 Room Air 12/08/17 03:05 36.6 90 18 150/78 (102) 97 Room Air 12/08/17 00:00 Room Air 12/07/17 23:23 37.1 84 18 141/75 (97) 97 Room Air 12/07/17 19:19 36.7 101 18 154/90 (111) 97 12/07/17 16:00 99 Room Air 12/07/17 14:45 36.2 87 20 151/75 (100) 99 Room Air 12/07/17 13:09 36.4 88 18 174/88 (116) 98 Room Air 12/07/17 12:34 79 18 177/83 (114) 97 Room Air 12/07/17 12:19 73 18 147/81 (103) 97 Room Air 12/07/17 12:04 74 18 128/72 (90) 97 Room Air 12/07/17 11:02 37.4 82 18 177/85 (115) 96 Room Air Physical Exam General Appearance: no apparent distress Eyes: PERRL ENT: hearing grossly normal Neck: supple, trachea midline Respiratory/Chest: lungs clear, normal breath sounds Cardiovascular: regular rate, rhythm Abdomen: normal bowel sounds, soft, no organomegaly Neurologic/Psych: alert, normal mood/affect, oriented x 3 Skin: normal color Laboratory Results Last 24 Hours Test 12/08/17 05:55 White Blood Count 10.25 K/uL Red Blood Count 3.93 M/uL Hemoglobin 10.8 g/dL Hematocrit 32.0 % Mean Corpuscular Volume 81.4 fL Mean Corpuscular Hemoglobin 27.5 pg Mean Corpuscular Hemoglobin Concent 33.8 g/dl RDW Standard Deviation 50.5 fL RDW Coefficient of Variation 16.8 % Platelet Count 410 K/uL Mean Platelet Volume 9.1 fL Sodium Level 137 mmol/L Potassium Level 2.9 mmol/L Chloride Level 103 mmol/L Carbon Dioxide Level 27 mmol/L Anion Gap 7.0 mmol/L Blood Urea Nitrogen 5 mg/dl Creatinine 0.60 mg/dl Est Creatinine Clear Calc Drug Dose 58.3 ml/min Estimated GFR () 101.2 Estimated GFR (Non- 87.3 BUN/Creatinine Ratio 8.2 Random Glucose 101 mg/dl Calcium Level 8.1 mg/dl Phosphorus Level 1.9 mg/dl Magnesium Level 2.1 mg/dl Assessment and Plan 77-year-old female with idiopathic extensive portal vein, superior mesenteric vein thrombus who presented to [facility] w. upper abdominal pain, anorexia. EGD w/ large duodenal ulcer - bx were not obtained at the time as INR was still elevated. Repeat EGD yesterday w/ improvement of previously visualized duodenal ulcer, benign appearing. No bx was obtained. - BID PPI for 2 months then daily PPI indefinitely. - Repeat EGD in 3 weeks. - No NSAIDs - Resume AC - Continue work up per hematology - GI will watch peripherally. Please call with any questions or concerns.
[2017-12-08 11:34] VITALS: BP 156/79; PULSE 76; TEMP 36.8; O2SAT 98
[2017-12-08] MEDS ORDERED: POTASSIUM PHOS 3 MMOL/1 ML INFUSION IV STA (13:16)
[2017-12-08] MEDS ORDERED: ENOXAPARIN 40 MG/0.4 ML SYR SQ SCH (13:30)
[2017-12-08] MEDS ORDERED: ENOXAPARIN 80 MG/0.8 ML SYR SQ SCH (13:30)
[2017-12-08] MEDS ORDERED: ENOXAPARIN 100 MG/1ML SYR SQ SCH (13:30)
[2017-12-08] MEDS ORDERED: POTASSIUM PHOSPHATE INJ 21 MMOL in SODIUM CHLORIDE 0.9% 500ML 500 ML IV ONE (13:30)
[2017-12-08 15:08] VITALS: BP 150/79; PULSE 79; TEMP 36.7; O2SAT 97
[2017-12-08] MEDS ORDERED: WARFARIN SOD 5 MG TAB PO SCH (16:00)
[2017-12-08] MEDS ORDERED: ENOXAPARIN 60 MG/0.6 ML SYR SQ ONE (16:00)
--- NOTE | 2017-12-08 16:48 | Hematology/Oncology Prog Note ---
Hematology/Onc Progress Note Date of Service Dec 08, 2017. Subjective Patient was rounded on at bedside. Her daughter was there. She reports feeling overall well. She is eating small amounts. She does not have abdominal pain now. She had watery stool this AM, but had been NPO more recently for EGD yesterday. No melena or hematochezia. Review of Systems: Abdomen: + see HPI Vital Signs Vital Signs Past 12 Hours Date Time Temp Pulse Resp B/P (MAP) Pulse Ox O2 Delivery O2 Flow Rate FiO2 12/08/17 15:40 Room Air 12/08/17 15:08 36.7 79 18 150/79 (102) 97 Room Air 12/08/17 11:34 36.8 76 18 156/79 (104) 98 Room Air 12/08/17 08:00 Room Air 12/08/17 07:39 36.7 64 20 160/79 (106) 96 Room Air Physical Exam Head: normocephalic ENMT: hearing grossly normal Lungs: Respiratory Effort: no dyspnea Laboratory 12/06/17 04:46 12/08/17 05:55 12/06/17 04:46 12/08/17 05:55 Test 12/06/17 04:46 12/06/17 05:35 12/08/17 05:55 Red Blood Count 3.76 M/uL (4.2-5.4) 3.93 M/uL (4.2-5.4) Mean Corpuscular Volume 82.2 fL (80-100) 81.4 fL (80-100) Mean Corpuscular Hemoglobin 27.9 pg (25-34) 27.5 pg (25-34) Mean Corpuscular Hemoglobin Concent 34.0 g/dl (32-36) 33.8 g/dl (32-36) RDW Standard Deviation 49.4 fL (36.4-46.3) 50.5 fL (36.4-46.3) RDW Coefficient of Variation 16.4 % (11.5-14.5) 16.8 % (11.5-14.5) Mean Platelet Volume 9.1 fL (7.4-10.4) 9.1 fL (7.4-10.4) Anion Gap 7.0 mmol/L (3-11) 7.0 mmol/L (3-11) Est Creatinine Clear Calc Drug Dose 63.6 ml/min 58.3 ml/min Estimated GFR () 104.1 101.2 Estimated GFR (Non- 89.8 87.3 BUN/Creatinine Ratio 6.8 (10-20) 8.2 (10-20) Calcium Level 7.4 mg/dl (8.5-10.1) 8.1 mg/dl (8.5-10.1) Urine Color YELLOW Urine Appearance CLEAR (CLEAR) Urine pH 7.5 (4.5-7.5) Urine Specific [place] 1.012 (1.000-1.030) Urine Protein NEG (NEG) Urine Glucose (UA) NEG (NEG) Urine Ketones NEG (NEG) Urine Occult Blood TRACE (NEG) Urine Nitrite NEG (NEG) Urine Bilirubin NEG (NEG) Urine Urobilinogen POS (NEG) Urine Leukocyte Esterase NEG (NEG) Urine WBC (Auto) 1-5 /hpf (0-5) Urine RBC (Auto) 5-10 /hpf (0-4) Urine Hyaline Casts (Auto) 0 /lpf (0-5) Urine Epithelial Cells (Auto) 5-10 /lpf (0-5) Urine Bacteria (Auto) NEG (NEG) Phosphorus Level 1.9 mg/dl (2.5-4.9) Magnesium Level 2.1 mg/dl (1.8-2.4) Date/Time Source Procedure Growth Status 12/06/17 05:35 Urine , Clean Catch Urine Culture - Final NO GROWTH - LESS THAN 1,000 COLONIES/ML Complete Assessment & Plan 1. Portal vein thrombosis 2. Duodenal ulcer 3. Normocytic anemia * Patient is s/p repeat EGD yesterday which shows improving ulceration of duodenum, not suspicious for malignancy and not biopsied, area is not bleeding, so GI has recommended resumption of anticoagulation * H+H have been stable over past few days * Duodenal ulcer treatment per GI * Informed Dr. Allred that Lovenox to warfarin bridge can be initiated at this time * Patient will need CBCD daily monitored during hospitalization once anticoagulation is started in case exacerbation of anemia occurs * Patient will need Hematology follow up on discharge with Dr. Yair Allen is attending corporate representative- covering for Dr. Mazariegos. He is aware and agreeable to the plan. See his addendum I have discussed the patient's case, impression and plan with Sana Myers. Her note reflects my findings and plan. .mn .
--- NOTE | 2017-12-08 19:19 | Progress Note ---
Internal Med Progress Note Date of Service: Dec 08, 2017. Provider Documentation: SUBJECTIVE: resting comfortably daughter in room afebrile eating ok' no nausea or abdominal pain no blood in stool no sob or chest pain OBJECTIVE: Vital Signs-as noted below Exam: General-alert and oriented. Not in distress ENT-normal hearing. Neck-No neck masses Lungs-CTA b/l no wheezing or crackles Heart-S1 and S2 heard regular rate and rhythm no murmurs Abdomen-soft Bowels sounds present non tender no distension Extremities-no edema no erythema Neuro-alert and oriented moves extremities Lab data as noted below. ASSESSMENT & PLAN: 77-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 She underwent endoscopy revealing a flat nonbleeding ulcer in the duodenum. There was an initial concern this may be malignant however on repeat endoscopy today this was not thought probable. No biopsies were taken. MRI of the abdomen PVT otherwise unremarkable for mets or abscess.. Tolerating po. symptoms improved. Starting Coumadin with Lovenox bridge today and monitor h and h 1. Nonbleeding duodenal ulcer-Most likely a cause of her abdominal discomfort which is improved now. Repeat endoscopy non bleeding duodenal ulcer.. Stopped PPI drip and to continue po PPI twice daily for two months and then indefinitely. H. pylori was negative in the stool. On Tums as needed symptoms. Tolerating regular diet. 2. PVT-likely contributing to abdominal pain and symptoms. Restarting Coumadin with Lovenox bridge. f/u with Coumadin clinic.hypercoagulable workup followup with heme/onco. 3. Abdominal tenderness-multiple issues going on including duodenal ulcer, PVT with extension into mesenteric veins, and soft tissue mesenteric nodules found on CT and MRA abdomen .improved now. 4. Hypokalemia-replaced. Repeat PRP in a.m. DVT prophylaxis Lovenox and Coumadin. Full code Disposition-Possible d.c in am Vital Signs: Date Time Temp Pulse Resp B/P (MAP) Pulse Ox O2 Delivery O2 Flow Rate FiO2 12/08/17 15:40 Room Air 12/08/17 15:08 36.7 79 18 150/79 (102) 97 Room Air 12/08/17 11:34 36.8 76 18 156/79 (104) 98 Room Air 12/08/17 08:00 Room Air 12/08/17 07:39 36.7 64 20 160/79 (106) 96 Room Air 12/08/17 03:05 36.6 90 18 150/78 (102) 97 Room Air 12/08/17 00:00 Room Air 12/07/17 23:23 37.1 84 18 141/75 (97) 97 Room Air 12/07/17 19:19 36.7 101 18 154/90 (111) 97 Lab Results: Results Past 24 Hours Test 12/08/17 05:55 Range/Units White Blood Count 10.25 4.8-10.8 K/uL Red Blood Count 3.93 4.2-5.4 M/uL Hemoglobin 10.8 12.0-16.0 g/dL Hematocrit 32.0 37-47 % Mean Corpuscular Volume 81.4 80-100 fL Mean Corpuscular Hemoglobin 27.5 25-34 pg Mean Corpuscular Hemoglobin Concent 33.8 32-36 g/dl RDW Standard Deviation 50.5 36.4-46.3 fL RDW Coefficient of Variation 16.8 11.5-14.5 % Platelet Count 410 130-400 K/uL Mean Platelet Volume 9.1 7.4-10.4 fL Sodium Level 137 136-145 mmol/L Potassium Level 2.9 3.5-5.1 mmol/L Chloride Level 103 98-107 mmol/L Carbon Dioxide Level 27 21-32 mmol/L Anion Gap 7.0 3-11 mmol/L Blood Urea Nitrogen 5 7-18 mg/dl Creatinine 0.60 0.60-1.20 mg/dl Est Creatinine Clear Calc Drug Dose 58.3 ml/min Estimated GFR () 101.2 Estimated GFR (Non- 87.3 BUN/Creatinine Ratio 8.2 10-20 Random Glucose 101 70-99 mg/dl Calcium Level 8.1 8.5-10.1 mg/dl Phosphorus Level 1.9 2.5-4.9 mg/dl Magnesium Level 2.1 1.8-2.4 mg/dl
[2017-12-08 19:22] VITALS: BP 157/79; PULSE 78; TEMP 36.9; O2SAT 96
[2017-12-08 23:07] VITALS: BP 158/83; PULSE 73; TEMP 36.7; O2SAT 97
[2017-12-09 04:56] VITALS: BP 147/70; PULSE 75; TEMP 36.9; O2SAT 98
[2017-12-09] MEDS ORDERED: ENOXAPARIN 60 MG/0.6 ML SYR SQ SCH (06:00)
[2017-12-09 07:26] VITALS: BP 167/80; PULSE 91; TEMP 36.5; O2SAT 95
[2017-12-09 08:23] LABS: BASO % 0.3 %; BASO ABS # 0.02 K/uL (0-0.2); EOS % 2.2 %; EOS ABS # 0.17 K/uL (0-0.5); HEMATOCRIT 34.5 % (37-47); HEMOGLOBIN 11.5 g/dL (12.0-16.0); IG# 0.16 K/uL (0.00-0.02); LYMPH % 18.1 %; LYMPH ABS # 1.43 K/uL (1.2-3.4); MEAN CELL VOLUME 81.4 fL (80-100); MEAN CORPUSCULAR HEMOGLOBIN 27.1 pg (25-34); MEAN CORPUSCULAR HGB CONC 33.3 g/dl (32-36); MEAN PLATELET VOLUME 9.3 fL (7.4-10.4); MONO % 6.7 %; MONO ABS # 0.53 K/uL (0.11-0.59); NEUT % 70.7 %; NEUT ABS # 5.57 K/uL (1.4-6.5); PLATELET COUNT 517 K/uL (130-400); RED CELL DISTRIBUTION WIDTH CV 16.7 % (11.5-14.5); RED CELL DISTRIBUTION WIDTH SD 49.8 fL (36.4-46.3); WHITE BLOOD COUNT 7.88 K/uL (4.8-10.8)
[2017-12-09] MEDS: PANTOprazole SOD 40 MG TAB PO SCH (08:29)
[2017-12-09 08:57] LABS: CALCIUM 8.5 mg/dl (8.5-10.1); CREATININE 0.53 mg/dl (0.60-1.20)
[2017-12-09 08:58] LABS: PHOSPHORUS 2.9 mg/dl (2.5-4.9)
[2017-12-09 11:33] VITALS: BP 149/89; PULSE 84; TEMP 36.8; O2SAT 93
[2017-12-09] MEDS ORDERED: POTA10CA28 PO (13:39)
[2017-12-09] MEDS ORDERED: PRT40 PO (13:39)
--- NOTE | 2017-12-09 13:44 | Discharge Instructions ---
Discharge Instructions Date of Service Dec 09, 2017. Admission Reason for Admission: Abdominal Pain Discharge Discharge Diagnosis / Problem: ABDOMINAL PAIN. DUODENAL ULCER. PORTAL VEIN THROMBOSIS Discharge Goals Goal(s): Decrease discomfort, Improve function Activity Recommendations Activity Limitations: resume your previous activity . Instructions / Follow-Up Instructions / Follow-Up FOLLOWUP WITH FAMILY DOCTOR ON November AT 9;15AM. FOLLOWUP WITH HEME/ONCOLOGY SCHEDULED OR IN 3-4 WEEKS.([address] [place] [address] . FOLLOWUP WITH GI SCHEDULED FOR REPEAT ENDOSCOPY. LAB: PT/INR ON ThursdayNovember AND FOLLOW RESULTS WITH COUMADIN CLINIC. STOPPING OF LOVENOX SHOTS PER COUMADIN CLINIC.COUMADIN CLINIC NOTIFIED. LAB: BMP WITH MG LEVELS IN 5-7 DAYS AND FOLLOW RESULTS WITH FAMILY DOCTOR. Current Hospital Diet Patient's current hospital diet: Regular Diet Discharge Diet Recommended Diet: Regular Diet Procedures Procedures Performed: EGD Pending Studies Studies pending at discharge: yes List of pending studies: HYPERCOAGUABLE WORKUP Medical Emergencies . Who to Call and When: Medical Emergencies: If at any time you feel your situation is an emergency, please call 911 immediately. . Non-Emergent Contact Non-Emergency issues call your: Primary Care Provider . . "Provider Documentation" section prepared by Amrik Allred. .
[2017-12-09] MEDS ORDERED: POTASSIUM CHLORIDE 20 MEQ TABCR PO ONE (13:45)
[2017-12-09] MEDS ORDERED: LVNIS60 SQ ×2 (13:46→13:47)
[2017-12-09 13:47] VITALS: BP 149/89; PULSE 84; TEMP 36.8; O2SAT 93
--- NOTE | 2017-12-09 18:23 | Progress Note ---
Internal Med Progress Note Date of Service: Dec 09, 2017. Provider Documentation: SUBJECTIVE: resting comfortably daughter in room ambulating fine no sob no abdominal pain, eating well wants to go home OBJECTIVE: Vital Signs-as noted below Exam: General-alert and oriented. Not in distress ENT-normal hearing. Neck-No neck masses Lungs-CTA b/l no wheezing or crackles Heart-S1 and S2 heard regular rate and rhythm no murmurs Abdomen-soft Bowels sounds present non tender no distension Extremities-no edema no erythema Neuro-alert and oriented moves extremities Lab data as noted below. ASSESSMENT & PLAN: 77-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 She underwent endoscopy revealing a flat nonbleeding ulcer in the duodenum. There was an initial concern this may be malignant however on repeat endoscopy today this was not thought probable. No biopsies were taken. MRI of the abdomen PVT otherwise unremarkable for mets or abscess.. Tolerating po. symptoms improved. Starting Coumadin with Lovenox bridge today and monitor h and h 1. Nonbleeding duodenal ulcer-Most likely a cause of her abdominal discomfort which is improved now. Repeat endoscopy non bleeding duodenal ulcer.. Stopped PPI drip and to continue po PPI twice daily for two months and then indefinitely. H. pylori was negative in the stool. On Tums as needed symptoms. Tolerating regular diet.F/u EGD as per GI 2. PVT-likely contributing to abdominal pain and symptoms. Restarting Coumadin with Lovenox bridge. f/u with Coumadin clinic.hypercoagulable workup followup with heme/onco.Coumadin clinic notified 3. Abdominal tenderness-multiple issues going on including duodenal ulcer, PVT with extension into mesenteric veins, and soft tissue mesenteric nodules found on CT and MRA abdomen .improved now. 4. Hypokalemia-replaced. Repeat PRP in a.m.f/u labs with pcp discharged home Vital Signs: Date Time Temp Pulse Resp B/P (MAP) Pulse Ox O2 Delivery O2 Flow Rate FiO2 12/09/17 13:47 36.8 84 22 93 Room Air 12/09/17 11:33 36.8 84 22 149/89 (109) 93 Room Air 12/09/17 08:00 Room Air 12/09/17 07:26 36.5 91 16 167/80 (109) 95 Room Air 12/09/17 04:56 36.9 75 18 147/70 (95) 98 Room Air 12/09/17 00:00 Room Air 12/08/17 23:07 36.7 73 18 158/83 (108) 97 Room Air 12/08/17 20:00 Room Air 12/08/17 19:22 36.9 78 18 157/79 (105) 96 Room Air Lab Results: Results Past 24 Hours Test 12/09/17 08:11 Range/Units White Blood Count 7.88 4.8-10.8 K/uL Red Blood Count 4.24 4.2-5.4 M/uL Hemoglobin 11.5 12.0-16.0 g/dL Hematocrit 34.5 37-47 % Mean Corpuscular Volume 81.4 80-100 fL Mean Corpuscular Hemoglobin 27.1 25-34 pg Mean Corpuscular Hemoglobin Concent 33.3 32-36 g/dl Platelet Count 517 130-400 K/uL Mean Platelet Volume 9.3 7.4-10.4 fL Neutrophils (%) (Auto) 70.7 % Lymphocytes (%) (Auto) 18.1 % Monocytes (%) (Auto) 6.7 % Eosinophils (%) (Auto) 2.2 % Basophils (%) (Auto) 0.3 % Neutrophils # (Auto) 5.57 1.4-6.5 K/uL Lymphocytes # (Auto) 1.43 1.2-3.4 K/uL Monocytes # (Auto) 0.53 0.11-0.59 K/uL Eosinophils # (Auto) 0.17 0-0.5 K/uL Basophils # (Auto) 0.02 0-0.2 K/uL RDW Standard Deviation 49.8 36.4-46.3 fL RDW Coefficient of Variation 16.7 11.5-14.5 % Immature Granulocyte % (Auto) 2.0 % Immature Granulocyte # (Auto) 0.16 0.00-0.02 K/uL Sodium Level 136 136-145 mmol/L Potassium Level 3.0 3.5-5.1 mmol/L Chloride Level 102 98-107 mmol/L Carbon Dioxide Level 25 21-32 mmol/L Anion Gap 10.0 3-11 mmol/L Blood Urea Nitrogen 5 7-18 mg/dl Creatinine 0.53 0.60-1.20 mg/dl Est Creatinine Clear Calc Drug Dose 66.0 ml/min Estimated GFR () 105.4 Estimated GFR (Non- 90.9 BUN/Creatinine Ratio 9.7 10-20 Random Glucose 94 70-99 mg/dl Calcium Level 8.5 8.5-10.1 mg/dl Phosphorus Level 2.9 2.5-4.9 mg/dl Magnesium Level 2.1 1.8-2.4 mg/dl
--- NOTE | 2017-12-09 18:37 | Discharge Summary ---
Discharge Summary Date of Service Dec 09, 2017. Discharge Summary Admission Date: Dec 03, 2017 at 16:50 Discharge Date: Dec 09, 2017 Discharge Disposition: Home Principal Diagnosis: ABDOMINAL [PAIN PORTAL VEIN THROMBUS DUODENAL ULCER Secondary Diagnoses/Problems: (1) Diverticulosis Status: Chronic (2) Portal vein thrombosis Status: Chronic Procedures: CXR: No acute cardiopulmonary abnormality. CT ABD/PELVIS: 1. No evidence of bowel obstruction. No evidence of free air 2. Extensive diverticulosis. No acute diverticulitis. Normal appendix 3. Superior mesenteric vein and portal vein thrombus. There is also a suspected thrombosed left-sided mesenteric vein 4. Irregular enhancement of the right hepatic lobe which is felt to be secondary to thrombosed right portal vein branches 5. Left upper quadrant peritoneal nodules which are viewed as suspicious for carcinomatosis 6. Gastric antral thickening versus a nondistended stomach. Soft tissue surrounding a duodenal diverticulum. This could represent either a collapsed diverticulum, or diverticular mass. GI consultation for consideration of endoscopy is recommended. MRI ABDOMEN:1. Thrombus within the main portal vein, superior mesenteric vein, and inferior mesenteric vein. Thrombosed right portal vein and portal vein radicles 2. No focal hepatic masses. No pancreatic masses. No biliary or pancreatic ductal dilatation 3. No splenic masses. 4. Left renal cyst. No solid renal masses 5. Trace right pleural effusion and trace perihepatic fluid 6. Left upper quadrant peritoneal nodularity. On the prior CT scan, this is reported as suspicious for carcinomatosis. On MRI, it is possible that these nodular foci represent thrombosed mesenteric venous radicles, and not tumor nodules. Close follow-up is recommended.. Consultations: GI-Dr. Wolfe Hematology-Dr. Mazariegos Medication Reconciliation New Medications: Potassium Chloride (Micro-K Ext Rel) 10 Meq Capcr 10 MEQ PO DAILY, #3 CAP Enoxaparin (Enoxaparin Sodium) 60 Mg/0.6 Ml Inj 60 MG SQ BID@0800,2000 for 4 Days, #8 SYR Pantoprazole (Pantoprazole Sodium) 40 Mg Tab 40 MG PO BID, #60 TAB 2 Refills PROTONIX 40MG PO TWICE DAILY X 2MONTHS AND THEN PROTONIX 40MG PO ONCE DAILY. Continued Medications: Warfarin Sod (Jantoven) 5 Mg Tab 5 MG PO 5XWK, TAB Mon, Wed, Fri, Sat, Sun Warfarin Sod (Coumadin) 5 Mg Tab 2.5 MG PO 2XWK , Admission Information HPI (per Admitting provider): 77-year-old female who presents to the ED with chief complaint of abdominal pain. Approximately 3 weeks ago patient presented to her PCPs office with reports of fevers, night sweats, generalized rash, and GI upset. Labs were obtained that showed elevated LFTs. Ultrasound was then obtained and showed a portal vein thrombosis. Patient was started on a Lovenox bridge to Coumadin. She was also placed on a prednisone taper for the rash which is now resolved. Patient reports she has continued to feel poorly for the past 3 weeks. She has had a very poor appetite with very little oral intake. She reports a 10 pound weight loss in the past 1 month. She has had mid epigastric pain that is sharp and stabbing at times. She had some vomiting in the beginning however denies any recent vomiting. She continues to have night sweats. She denies any changes in her bowel habits. She denies chest pain and shortness of breath. No cough or sputum production. She denies lightheadedness, dizziness, and syncopal events. No urinary symptoms. In the ED patient's WBC is [address] ABD /pelvis shows superior mesenteric vein and portal vein thrombus, suspected thrombosed left-sided mesenteric vein, left upper quadrant peritoneal nodules which are viewed as suspicious for carcinomatosis, and gastric antral thickening versus a nondistended stomach and soft tissue surrounding a duodenal diverticulum. Patient was given IVF. Physical Exam (per Admitting): General Appearance: WD/WN, no apparent distress Head: normocephalic, atraumatic Eyes: normal inspection, EOMI, sclerae normal ENT: hearing grossly normal, + pertinent finding (Mucous membranes dry) Neck: supple, no JVD, trachea midline Respiratory/Chest: chest non-tender, lungs clear, normal breath sounds, no respiratory distress Cardiovascular: regular rate, rhythm, no edema, normal peripheral pulses Abdomen/GI: normal bowel sounds, soft, no organomegaly, + tenderness ( Epigastric) Extremities/Musculoskelatal: normal inspection, no calf tenderness, normal capillary refill Neurologic/Psych: no motor/sensory deficits, alert, normal mood/affect, oriented x 3 Skin: normal color, warm/dry Hospital Course 77-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 She underwent endoscopy revealing a flat nonbleeding ulcer in the duodenum. There was an initial concern this may be malignant however on repeat endoscopy today this was not thought probable. No biopsies were taken. MRI of the abdomen PVT otherwise unremarkable for mets or abscess.. Tolerating po. symptoms improved. Starting Coumadin with Lovenox bridge today and monitor h and h 1. Nonbleeding duodenal ulcer-Most likely a cause of her abdominal discomfort which is improved now. Repeat endoscopy non bleeding duodenal ulcer.. Stopped PPI drip and to continue po PPI twice daily for two months and then indefinitely. H. pylori was negative in the stool. On Tums as needed symptoms. Tolerating regular diet.F/u EGD as per GI 2. PVT-likely contributing to abdominal pain and symptoms. Restarting Coumadin with Lovenox bridge. f/u with Coumadin clinic.hypercoagulable workup followup with heme/onco.Coumadin clinic notified 3. Abdominal tenderness-multiple issues going on including duodenal ulcer, PVT with extension into mesenteric veins, and soft tissue mesenteric nodules found on CT and MRA abdomen .improved now. 4. Hypokalemia-replaced. Repeat PRP in a.m.f/u labs with pcp discharged home Total time spent on discharge = 35MINUTES This includes examination of the patient, discharge planning, medication reconciliation, and communication with other providers. Discharge Instructions Discharge Instructions Date of Service Dec 09, 2017. Admission Reason for Admission: Abdominal Pain Discharge Discharge Diagnosis / Problem: ABDOMINAL PAIN. DUODENAL ULCER. PORTAL VEIN THROMBOSIS Discharge Goals Goal(s): Decrease discomfort, Improve function Activity Recommendations Activity Limitations: resume your previous activity . Instructions / Follow-Up Instructions / Follow-Up FOLLOWUP WITH FAMILY DOCTOR ON November AT 9;15AM. FOLLOWUP WITH HEME/ONCOLOGY SCHEDULED OR IN 3-4 WEEKS.([address] [place] [address] . FOLLOWUP WITH GI SCHEDULED FOR REPEAT ENDOSCOPY. LAB: PT/INR ON ThursdayNovember AND FOLLOW RESULTS WITH COUMADIN CLINIC. STOPPING OF LOVENOX SHOTS PER COUMADIN CLINIC.COUMADIN CLINIC NOTIFIED. LAB: BMP WITH MG LEVELS IN 5-7 DAYS AND FOLLOW RESULTS WITH FAMILY DOCTOR. Current Hospital Diet Patient's current hospital diet: Regular Diet Discharge Diet Recommended Diet: Regular Diet Procedures Procedures Performed: EGD Pending Studies Studies pending at discharge: yes List of pending studies: HYPERCOAGUABLE WORKUP Medical Emergencies . Who to Call and When: Medical Emergencies: If at any time you feel your situation is an emergency, please call 911 immediately. . Non-Emergent Contact Non-Emergency issues call your: Primary Care Provider . .
== END 2017-12-09 14:52 | disposition home or self-care (01) | DRG 383 ==
LOC: C.EDB 14:04 → C.4E 16:50 → ENRESERV 17:00
PROVIDERS: ADMIT Family Medicine; ATTEND Internal Medicine
PROC: 0DJ08ZZ Inspection of Upper Intestinal Tract, Via Natural or Artificial Opening Endoscopic (ICD-10-PCS; principal; 2017-12-04 12:07)
DX: K26.9 Duodenal ulcer, unspecified as acute or chronic, without hemorrhage or perforation (principal); I81 Portal vein thrombosis; E87.6 Hypokalemia; R63.4 Abnormal weight loss; D72.829 Elevated white blood cell count, unspecified; R10.9 Unspecified abdominal pain; D64.9 Anemia, unspecified; Z96.652 Presence of left artificial knee joint; Z79.01 Long term (current) use of anticoagulants; Z90.711 Acquired absence of uterus with remaining cervical stump; Z80.0 Family history of malignant neoplasm of digestive organs

== ENCOUNTER → 2018-01-19 | Day surgery (SDC) | payer OTHER ==
[2018-01-12 09:52] VITALS: Ht 154.9 cm; Wt 56.4 kg
[~2018-01-19] VITALS: Ht 154.9 cm; Wt 56.4 kg
[~2018-01-19] MED LIST: CHOL2000 PO; CMD5 PO; DOCU100C31 PO; FSMD/70 PO; LIDOCAINE HCL 2% 2 ML VIAL (20MG/ML) ONE; PANT40TA PO; PROPOFOL IV EMULSION 10 MG/ML 20 ML VIAL ONE; SENN-61 PO; SODIUM CHLORIDE 0.9% 500ML 500 ML IV ONE; WARF5TAB7 PO; [UNRECOGNIZED DRUG - CODE]
--- NOTE | 2018-01-19 09:08 | Endo History and Physical ---
History & Physical Date of Service: January 19, 2018. Chief Complaint: Referring Physician: History of Present Illness 77 yo presenting for f/u of duodenal ulcer in the setting of idiopathic portal vein thrombosis Past Surgical History Hx Cardiac Surgery: No Hx Internal Defibrillator: No Hx Pacemaker: No Hx Abdominal Surgery: Yes (HYSTER ) Hx of Implantable Prosthesis: No Hx Post-Op Nausea and Vomiting: No Hx Cancer Surgery: Yes (SKIN CA ) Hx Thoracic Surgery: No Hx Orthopedic: Yes (L TKA-06/16) Hx Urinary Tract Surgery: No Family History Colon CA, IBD Social History Smoking Status: Former Smoker Hx Substance Use: No Hx Alcohol Use: No Allergies Coded Allergies: No Known Allergies (Unverified , 01/12/18) Current Medications Reported Home Medications Medications Dose Route/Sig Max Daily Dose Days Date Category Dose Instructions Fosamax+D 70MG/2800 Iu (Alendronate Sodium/Vitamin D3) 70 Mg Tab 1 Tablet PO WK 01/12/18 Reported Vitamin D3 (Cholecalciferol) 2,000 Unit Cap 1 Cap PO DAILY 30 01/12/18 Reported Senokot (Senna) 8.6 Mg Tab 1 Tab PO BID PRN 01/12/18 Reported Eq Natural Fiber Laxative (Psyllium) 58.6 % Pow DIRECTED PRN 01/12/18 Reported Docusate Sodium 100 Mg Cap 1 Cap PO DAILY 30 01/12/18 Reported Protonix (Pantoprazole Sodium) 40 Mg Tab 1 Tab PO BID 30 01/12/18 Reported Coumadin (Warfarin Sod) 5 Mg Tab 2.5 Mg PO 2XWK 12/03/17 Reported Tues, Thurs Jantoven (Warfarin Sodium) 5 Mg Tab 5 Mg PO 5XWK 12/03/17 Reported Mon, Wed, Fri, Sat, Sun Vital Signs Weight (Kilograms): 56.36 Height (Feet): 5 Height (Inches): 1 Physical Exam General Appearance: WD/WN, no apparent distress Respiratory/Chest: Respiratory effort: no dyspnea Auscultation: breath sounds normal, CTA except as noted Cardiovascular: Apical Impulse: not displaced Heart Auscultation: RRR, normal S1 Abdomen: Bowel Sounds: normal Inspection & Palpation: soft, non-distended Assessment and Plan 77 yo presenting for EGD for f/u of duodenal ulcer History of idiopathic portal vein thrombosis On coumadin but has had held for several days Proceed with EGD for f/u evaluation Feels very well without issues
--- NOTE | 2018-01-19 09:35 | GI REPORT ---
Patient Name: Kala Vitale Procedure Date: 01/19/2018 8:58 AM Date of : 1940 Admit Type: Outpatient Age: 77 Gender: Female Attending MD: Benito Wolfe MD Procedure: Upper GI endoscopy Providers: Benito Wolfe MD Referring MD: Carmine Poole Indications: Follow-up of acute duodenal ulcer with hemorrhage Medicines: Monitored Anesthesia Care Complications: No immediate complications. Estimated blood loss: None. Estimated Blood Loss: Estimated blood loss: none. Procedure: Pre-Anesthesia Assessment: - Pre-Anesthesia Assessment: - Prior to the procedure, a History and Physical was performed, and patient medications, allergies and sensitivities were reviewed. The patient's tolerance of previous anesthesia was reviewed. Please see [employer] for complete details. - The risks and benefits of the procedure and the sedation options and risks were discussed with the patient. All questions were answered and informed consent was obtained. - Patient identification and proposed procedure were verified prior to the procedure by the physician and the nurse. The procedure was verified in the pre-procedure area in the procedure room. After obtaining informed consent, the endoscope was passed carefully and meticuously under direct vision and only advanced when the lumen was clearly identified, C02 insuflation was utilized throughout the entirity of the procedure. Throughout the procedure, the patient's blood pressure, pulse, and oxygen saturations were monitored continuously. After obtaining informed consent, the endoscope (standard GIF and side viewing duodenoscope) was passed under direct vision. Throughout the procedure, the patient's blood pressure, pulse, and oxygen saturations were monitored continuously. The Scope was introduced through the mouth, and advanced to the second part of duodenum. The scope was introduced through the and advanced to the. The upper GI endoscopy was accomplished without difficulty. The patient tolerated the procedure well. Findings: The examined esophagus was normal. The entire examined stomach was normal. 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 The exam of the duodenum was otherwise normal. Prior ulcer had healed. Impression: - Normal esophagus. - Normal stomach. - Duodenal deformity. - No specimens collected. Recommendation: - Discharge patient to home (with escort). - Return to referring physician as previously scheduled. - Follow up with Hepatology - Use Prilosec (omeprazole) 20 mg PO daily indefinitely. Benito Wolfe MD 01/19/2018 9:35:16 AM This report has been signed electronically. Note Initiated On: 01/19/2018 8:58 AM Number of Addenda: 0 I attest to the content of the Intraoperative Record and orders documented therein, exceptions below {[id number]}
--- NOTE | 2018-01-19 09:42 | Discharge Instructions ---
Endoscopy Patient Instructions Date / Procedure(s) Performed January 19, 2018. EGD Allergy Information Coded Allergies: No Known Allergies (Unverified , 01/12/18) Discharge Date / Findings January 19, 2018. Findings: The examined esophagus was normal. The entire examined stomach was normal. 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 The exam of the duodenum was otherwise normal. Prior ulcer had healed. Impression: - Normal esophagus. - Normal stomach. - Duodenal deformity. - No specimens collected. Recommendation: - Discharge patient to home (with escort). - Return to referring physician as previously scheduled. - Follow up with Hepatology - Use Prilosec (omeprazole) 20 mg PO daily indefinitely. Medication Instructions Stopped Medication(s): coumadin Provider Instructions Activity Restrictions - No exercising or heavy lifting for 24 hours. - Do not drink alcohol the day of the procedure. - Do not drive a car or operate machinery until the day after the procedure. - Do not make any important decisions or sign important papers in 24 hours after the procedure. Following Day: - Return to full activity which may include returning to work/school. Diet Start your diet with liquids and light foods (jello, soup, juice, toast). Then eat your usual diet if not nauseated. Treatment For Common After Affects For mild abdominal pain, bloating, or excessive gas: - Rest - Eat lightly - Lie on right side Follow-Up Information Follow-up with Carmine Poole as scheduled Anesthesia Information What You Should Know You have had a procedure that required some medicine to reduce anxiety and discomfort. This treatment is called moderate sedation. After receiving the treatment, you may be sleepy, but you will be able to breathe on your own. The effects of the treatment may last for several hours. Follow these instructions along with Activity/Diet recommendations noted above: * Do NOT do anything where dizziness or clumsiness would be dangerous. * Rest quietly at home today, then you can be up and about tomorrow. * Have a responsible person stay with you the rest of today. * You may have had an I.V. today. If so, you may take the dressing off later today. Recommendations Call your doctor if: * Trouble breathing * Continuous vomiting for more than 24 hours * Temperature above 101 degrees * Severe abdominal pain or bloating * Pain not relieved by pain medicine ordered * There is increased drainage or redness from any incision * A large amount of rectal bleeding greater than 2-3 tablespoons. (If you had a polyp/s removed or have hemorrhoids, a small amount of blood - from the rectum is to be expected.) * You have any unanswered questions or concerns. IN THE EVENT OF A SERIOUS EMERGENCY, GO TO THE NEAREST EMERGENCY ROOM Your discharge instructions were prepared by provider Benito Wolfe. Patient Instructions Signature Page Kala Vitale Patient (or Guardian) Signature/Date: I have read and understand the instructions given to me by my caregivers. Caregiver/RN/Doctor Signature/Date: The above-named patient and/or guardian has received patient instructions on this date. + Original Patient Signature Page (only) stays with chart. Please make copy for patient.
--- NOTE | 2018-01-19 09:56 | Anesthesiology Progress Note ---
Anesthesia Post Op Note Date & Time January 19, 2018 at 09:55 Vital Signs Pain Intensity: 0 Vital Signs Past 12 Hours Date Time Temp Pulse Resp B/P (MAP) Pulse Ox O2 Delivery O2 Flow Rate FiO2 01/19/18 09:38 79 16 95/46 (62) 91 Room Air 01/19/18 09:05 37.1 93 18 157/104 (121) 94 Room Air Notes Mental Status: alert / awake / arousable, participated in evaluation Pt Amnestic to Procedure: Yes Nausea / Vomiting: adequately controlled Pain: adequately controlled Airway Patency, RR, SpO2: stable & adequate BP & HR: stable & adequate Hydration State: stable & adequate Anesthetic Complications: no major complications apparent
[2018-01-19 10:08] VITALS: BP 144/82; PULSE 76; O2SAT 94
== END | disposition home or self-care (01) ==
LOC: C.GI 08:26
PROVIDERS: ATTEND Internal Medicine
DX: K31.89 Other diseases of stomach and duodenum (principal); K21.9 Gastro-esophageal reflux disease without esophagitis; Z80.0 Family history of malignant neoplasm of digestive organs; Z87.891 Personal history of nicotine dependence; Z79.01 Long term (current) use of anticoagulants